=== PATIENT | female | born 1965 | race Caucasian/White ===

== ENCOUNTER 2016-06-04 10:09 | Emergency (ER) | payer BC, OTHER ==
[2016-06-04] MEDS ORDERED: Bacitracin Oint 1 GM U/D Packet TOP ONE (10:18)
--- NOTE | 2016-06-04 10:28 | EDM.PDOC ---
ED HPI Skin/Rash - General Chief Complaint: Laceration Stated Complaint: CUT THE TIP OF FINGER ON LT HAND Time Seen by Provider: 06/04/16 10:15 Source: Reports: Patient History Limitations: Reports: No limitations - History of Present Illness INITIAL COMMENTS - FREE TEXT/NARRATIVE: HISTORY AND PHYSICAL: History of present illness: [Patient comes to the emergency room for evaluation of a laceration to her right middle finger. 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 Had a lot of bleeding at the time and proceeded to the emergency room for evaluation. Her last tetanus was in 2013. Denies numbness and tingling. Has full range of motion to the affected extremity. While in the ER she reports that she's had some nonspecific left upper back pain on and off for the past several months. On 2 occasions this pain has radiated into her left shoulder. Does not have any radiation of discomfort into her jaw, neck or chest. She is not currently having the sensation in her upper back. Last episode was earlier this morning. She identifies an area of discomfort to her left mid back. On the same 2 occasions she's noticed that the pain has taken her breath away. Back pain does not typically cause shortness of breath or difficulty breathing. She is concerned that this may be related to her heart. She has not seen a primary care provider in several years. Parents are alive and well. No history of coronary artery or cerebrovascular disease in parents or siblings. She does not smoke, drinks alcohol twice per year. History of elevated cholesterol. No personal history of hypertension.] Review of systems: As per history of present illness and below otherwise all systems reviewed and negative. Past medical history: As per history of present illness and as reviewed below otherwise noncontributory. Surgical history: As per history of present illness and as reviewed below otherwise noncontributory. Social history: No reported history of drug or alcohol abuse. Family history: As per history of present illness and as reviewed below otherwise noncontributory. Physical exam: HEENT: Atraumatic, normocephalic. Chest: Clear to auscultation bilaterally no wheezing crackles or rales. Cardiac: regular rate rhythm. no murmur gallop click or rubs. Abdomen: Soft nontender no masses guarding or rebound. Extremities: Small superficial laceration extending from medial right fingernail extending across to her mid fingernail. Scant amount of bleeding on exam. Hand rouge sifter strength is strong and equal bilaterally. Neurovascular unremarkable. Musculoskeletal: TTP over L mid back, just below L ribs. Nontender over left scapula and surrounding musculature. No spinal tenderness with palpation. Neuro: Awake, alert, oriented. Cranial nerves II through XII unremarkable. Diagnostics: EKG, CBC, CMP, troponin, chest x-ray Impression: [Superficial laceration, less than 1 cm, right medial middle finger Left shoulder blade pain] Plan: [Bacitracin applied to laceration with sterile dressing by RN. return to ER as needed and as discussed. EKG shows a normal sinus rhythm with a rate of 72. no prior EKGs for comparison. Lab work today is within normal limits. Chest x-ray is unremarkable. Advised patient to establish care with a local primary care provider. Patient verbalized understanding of today's instructions. ] Definitive disposition and diagnosis as appropriate pending reevaluation and review of above. - Related Data Allergies Allergy/AdvReac Type Severity Reaction Status Date / Time No Known Allergies Allergy Verified 06/04/16 10:18 Home Meds: Ambulatory Orders Medication Instructions Recorded Confirmed Escitalopram [Lexapro] 20 mg PO DAILY 01/10/14 06/04/16 buPROPion [Wellbutrin XL] 300 mg PO DAILY 01/10/14 06/04/16 Ferrous Sulfate [Iron] 1 tab PO DAILY 02/28/14 06/04/16 Multivitamin [Multivitamins] 1 tab PO DAILY 02/28/14 06/04/16 Social & Family History - Tobacco Use Smoking Status *Q: Never Smoker Second Hand Smoke Exposure: No - Alcohol Use Days Per Week of Alcohol Use: 0 - Recreational Drug Use Recreational Drug Use: No ED ROS GENERAL - Review of Systems Review Of Systems: ROS reveals no pertinent complaints other than HPI. ED EXAM, SKIN/RASH Exam: See Below Course - Vital Signs Last Recorded V/S: Last Vital Signs Temp 98.0 F 06/04/16 10:15 Pulse 79 06/04/16 10:29 Resp 16 06/04/16 10:15 BP 158/101 H 06/04/16 10:29 Pulse Ox 98 06/04/16 10:15 - Orders/Labs/Meds Orders: Active Orders 24 hr Category Date Time Status EKG Documentation Completion [RC] STAT Care 06/04/16 10:36 Active Labs: Laboratory Tests 06/04/16 06/04/16 06/04/16 Range/Units 10:48 10:48 10:48 WBC 6.22 (4.0-11.0) K/uL RBC 4.42 (4.30-5.90) M/uL Hgb 13.6 (12.0-16.0) g/dL Hct 39.3 (36.0-46.0) % MCV 88.9 (80.0-98.0) fL MCH 30.8 (27.0-32.0) pg MCHC 34.6 (31.0-37.0) g/dL RDW Std Deviation 40.3 (28.0-62.0) fl RDW Coeff of Fransisca 13 (11.0-15.0) % Plt Count 262 (150-400) K/uL MPV 9.80 (7.40-12.00) fL Neut % (Auto) 59.9 (48.0-80.0) % Lymph % (Auto) 26.8 (16.0-40.0) % [place] % (Auto) 10.6 (0.0-15.0) % Eos % (Auto) 2.1 (0.0-7.0) % Baso % (Auto) 0.6 (0.0-1.5) % Neut # (Auto) 3.7 (1.4-5.7) K/uL Lymph # (Auto) 1.7 (0.6-2.4) K/uL [place] # (Auto) 0.7 (0.0-0.8) K/uL Eos # (Auto) 0.1 (0.0-0.7) K/uL Baso # (Auto) 0.0 (0.0-0.1) K/uL Sodium 140 (136-146) mmol/L Potassium 4.4 (3.5-5.1) mmol/L Chloride 106 (98-110) mmol/L Carbon Dioxide 24 (21-31) mmol/L BUN 16 (6.0-23.0) mg/dL Creatinine 0.9 (0.6-1.5) mg/dL Est Cr Clr Drug Dosing TNP Estimated GFR (MDRD) > 60.0 ml/min Glucose 107 (60-110) mg/dL Calcium 9.6 (8.8-10.8) mg/dL Total Bilirubin 0.4 (0.1-1.5) mg/dL AST 23 (5-40) IU/L ALT 28 (8-54) IU/L Alkaline Phosphatase 52 (40-150) Troponin I < 0.10 (0.0-0.29) NG/ML Total Protein 7.7 (6.0-8.0) g/dL Albumin 4.2 (3.5-5.0) g/dL Globulin 3.5 (2.0-3.5) g/dL Albumin/Globulin Ratio 1.2 L (1.3-2.8) Meds: Medications Discontinued Medications Generic Name Dose Route Start Last Admin Trade Name Freq PRN Reason Stop Dose Admin Bacitracin 1 dose 06/04/16 10:18 06/04/16 10:50 Bacitracin Oint 1 Gm TOP 06/04/16 10:19 1 dose ONETIME ONE Administration Departure - Departure Time of Disposition: 11:35 Disposition: Home, Self-Care 01 Condition: good Clinical Impression: Upper back pain on left side Laceration of middle finger Qualifiers: Encounter type: initial encounter Qualified Code(s): S61.218A - Laceration without foreign body of other finger without damage to nail, initial encounter Referrals: PCP,None [Primary Care Provider] - Forms: ED Department Discharge Additional Instructions: The following information is given to patients seen in the emergency department who are being discharged to home. This information is to outline your options for follow-up care. We provide all patients seen in our emergency department with a follow-up referral. The need for follow-up, as well as the timing and circumstances, are variable depending upon the specifics of your emergency department visit. If you don't have a primary care physician on staff, we will provide you with a referral. We always advise you to contact your personal physician following an emergency department visit to inform them of the circumstance of the visit and for follow-up with them and/or the need for any referrals to a consulting specialist. The emergency department will also refer you to a specialist when appropriate. This referral assures that you have the opportunity for follow-up care with a specialist. All of these measure are taken in an effort to provide you with optimal care, which includes your follow-up. Under all circumstances we always encourage you to contact your private physician who remains a resource for coordinating your care. When calling for follow-up care, please make the office aware that this follow-up is from your recent emergency room visit. If for any reason you are refused follow-up, please contact the [facility] emergency department at and asked to speak to the emergency department charge nurse. [address] [address] Apply Triple Antibiotic ointment and a Band-Aid twice daily. Keep clean and dry for the next 24 hours. Followup with a provider at the clinic listed above in 48-72 hours. Followup in ER as needed and as discussed. - My Orders Last 24 Hours: My Active Orders 06/04/16 10:36 EKG Documentation Completion [RC] STAT - Assessment/Plan Last 24 Hours: My Active Orders 06/04/16 10:36 EKG Documentation Completion [RC] STAT
[2016-06-04 11:21] LABS: CHLORIDE,CL 106 mmol/L (98-110); SODIUM,NA 140 mmol/L (136-146)
--- NOTE | 2016-06-04 11:25 | CR ---
EXAMINATION: Two-view chest (PA and Lateral views). HISTORY: Shortness breath. FINDINGS: The trachea is midline. The cardiomediastinal silhouette is within normal limits. No pulmonary infil trates, effusions or pneumothorax. Osseous structures appear unremarkable. IMPRESSION: No acute cardiopulmonary process.
[2016-06-04 11:50] VITALS: BP 164/99
== END 2016-06-04 11:49 | disposition home or self-care (01) ==
LOC: MW.ED 10:09
DX: S61.212A Laceration without foreign body of right middle finger without damage to nail, initial encounter (principal); M54.9 Dorsalgia, unspecified; Z79.899 Other long term (current) drug therapy; W26.0XXA Contact with knife, initial encounter; Y92.511 Restaurant or cafe as the place of occurrence of the external cause
CPT/HCPCS: 36415; 71020; 71020-26; 80053; 84484; 85025; 93005; 99283; 99284-25

== ENCOUNTER 2021-01-25 17:01 | Inpatient (IN) | payer BC, OTHER ==
[2021-01-25] MEDS ORDERED: Sodium Chloride 0.9% 2.5 ML Syringe FLUSH PRN (17:33)
[2021-01-25] MEDS ORDERED: Sodium Chloride 0.9% 1,000 ML IV ONE (17:33)
[2021-01-25] MEDS ORDERED: Sodium Chloride 0.9% 10 ML Syringe FLUSH PRN (17:33)
[2021-01-25] MEDS ORDERED: Ketorolac 30 MG/ML SDV IVPUSH ONE (17:34)
[2021-01-25] MEDS ORDERED: Acetaminophen 500 MG Tab PO ONE (17:34)
--- NOTE | 2021-01-25 17:40 | PCM.EKG ---
#1 Interpretation EKG Date: 01/25/21 Time: 17:31 Rhythm: NSR Rate (Beats/Min): 79 [place]: Normal P-Wave: Present QRS: Normal ST-T: Normal QT: Normal [place]/PQ Interval: 114 EKG Interpretation Comments: EKG is very poor baseline with wander in almost all leads; 2x PVC. No acute ischemic changes
--- NOTE | 2021-01-25 18:04 | EDM.PDOC ---
ED HPI GENERAL MEDICAL PROBLEM - General Chief Complaint: Respiratory Problem Stated Complaint: FEVER Time Seen by Provider: 01/25/21 17:19 Source of Information: Reports: Patient History Limitations: Reports: No Limitations - History of Present Illness INITIAL COMMENTS - FREE TEXT/NARRATIVE: HISTORY AND PHYSICAL: History of present illness: Patient is an otherwise healthy 55-year-old female who presents emergency room today with concern of shortness of breath, fever, nausea, generalized weakness x8 days. Patient states that she is also had a cough and generalized body aches and states that she is not vaccinated for Covid. Patient states that she was more short of breath over the past several days so came here to the emergency room for further evaluation. Patient denies chest pain. Denies headache, neck stiff ness, change in vision, syncope, or near syncope. Denies vomiting, abdominal pain, diarrhea, constipation, or dysuria. Has not noted any blood in urine or stool. Review of systems: As per history of present illness and below otherwise all systems reviewed and negative. Past medical history: As per history of present illness and as reviewed below otherwise noncontributory. Surgical history: As per history of present illness and as reviewed below otherwise noncontributory. Social history: See social history for further information Family history: As per history of present illness and as reviewed below otherwise noncontributory. Physical exam: General: Patient is alert, oriented, and in no acute distress. Patient laying comfortably on exam table. Patient is hypoxic 82% on room air, febrile, otherwise vitally stable and reviewed by me. Patient was placed on 3 L nasal cannula and satting 92%. HEENT: Atraumatic, normocephalic, pupils equal and reactive bilaterally, negative for conjunctival pallor or scleral icterus, mucous membranes moist, throat clear, neck supple, nontender, trachea midline. No drooling or trismus noted. No meningeal signs. No hot potato voice noted. Lungs: Clear to auscultation, breath sounds equal bilaterally, chest nontender. Heart: S1S2, regular rate and rhythm without overt murmur Abdomen: Soft, nondistended, nontender. Negative for masses or hepatosplenomegaly. Negative for costovertebral tenderness. Pelvis: Stable nontender. Genitourinary: Deferred. Rectal: Deferred. Skin: Intact, warm, dry. No lesions or rashes noted. Extremities: Atraumatic, negative for cords or calf pain. Neurovascular unremarkable. Neuro: Awake, alert, oriented. Cranial nerves II through XII unremarkable. Cerebellum unremarkable. Motor and sensory unremarkable throughout. Exam nonfocal. Medical Decision Making: Is an otherwise healthy 55-year-old female who presents emergency room today with concern of generalized body aches, fever, shortness of breath, nausea x8 days. Upon arrival to the ED, patient is hypoxic 82% on room air, febrile, is otherwise vitally stable and well-appearing on exam. Patient was placed on 3 L nasal cannula and satting about 92%. Will obtain cardiac evaluation, COVID- 19/influenza, provide therapeutics and reassess patient. See Dr. Veronica's dictation for specific EKG interpretation. Otherwise, poor baseline wander without STEMI. Normal sinus rhythm. CBC unremarkable. Patient does have mild elevation of AST at 51, otherwise mild derangements of CMP unremarkable. Troponin negative. COVID-19 positive. Angiography of the chest shows no pulmonary embolism. Patchy groundglass opacities throughout the lungs, typical of COVID-19 infection. Hepatic steatosis. On reevaluation of patient, she remains vitally stable on 3 L nasal cannula at about 93 to 94% and otherwise vitally stable and well-appearing on exam. She does have improvement of her symptoms with therapeutics given today in the emergency room and no longer febrile. I did offer patient remdesivir infusion, however, she declines at this time. All risks versus benefits discussed with patient and expresses understanding. I did call and speak to the hospitalist on-call, Dr. Oliva, and thoroughly discussed patient's case. Will admit to inpatient on telemetry to Dr. Oliva. Voices understanding and is agreeable to plan of care. Denies any further questions or concerns at this time. Patient was transferred over to the hospital floor under the care of Dr. Oliva in stable condition Diagnostics: EKG, CBC, CMP, Trop, COVID/Flu, Ang CT chest Therapeutics: NS, Toradol, Tylenol, Decadron (patient declines remdesivir. All risks versus benefits discussed with patient and expresses understanding) Impression: COVID19 viral pneumonia with hypoxia Plan: Admit to inpatient to the hospitalist, Dr. Oliva Definitive disposition and diagnosis as appropriate pending reevaluation and review of above. - Related Data Allergies Allergy/AdvReac Type Severity Reaction Status Date / Time No Known Allergies Allergy Verified 01/25/21 17:20 Home Meds: Home Meds Escitalopram [Lexapro] 20 mg PO DAILY 01/10/14 [History] buPROPion [Wellbutrin XL] 300 mg PO DAILY 01/10/14 [History] Past Medical History - Past Health History Medical/Surgical History: Denies Medical/Surgical History HEENT History: Reports: None Cardiovascular History: Reports: None Respiratory History: Reports: None Gastrointestinal History: Reports: None Genitourinary History: Reports: None COMMUNITY HEALTH EDUCATION COORDINATOR History: Reports: None Musculoskeletal History: Reports: None Neurological History: Reports: Migraines Psychiatric History: Reports: Depression Endocrine/Metabolic History: Reports: Obesity/BMI 30+ Hematologic History: Reports: None Immunologic History: Reports: None Oncologic (Cancer) History: Reports: None Dermatologic History: Reports: None - Infectious Disease History Infectious Disease History: Reports: Chicken Pox - Past Surgical History Head Surgeries/Procedures: Reports: None Neurological Surgical History: Reports: None Social & Family History - Family History Family Medical History: No Pertinent Family History - Tobacco Use Tobacco Use Status *Q: Never Tobacco User Second Hand Smoke Exposure: No - Caffeine Use Caffeine Use: Reports: Tea - Recreational Drug Use Recreational Drug Use: No ED ROS GENERAL - Review of Systems Review Of Systems: Comprehensive ROS is negative, except as noted in HPI. ED EXAM, GENERAL - Physical Exam Exam: See Below (see dictation) Course - Vital Signs Last Recorded V/S: Last Vital Signs Temp 98.8 F 01/25/21 19:12 Pulse 73 01/25/21 20:14 Resp 18 01/25/21 19:12 BP 104/64 01/25/21 20:14 Pulse Ox 93 L 01/25/21 20:14 - Orders/Labs/Meds Orders: Active Orders 24 hr Category Date Time Status Cardiac Monitoring [RC] . DIRECTED Care 01/25/21 17:33 Active Sodium Chloride 0.9% [Saline Flush] Med 01/25/21 17:33 Active 10 ml FLUSH ASDIRECTED PRN Sodium Chloride 0.9% [Saline Flush] Med 01/25/21 17:33 Active 2.5 ml FLUSH ASDIRECTED PRN Saline Lock Insert [OM.PC] Stat Oth 01/25/21 17:33 Ordered Medication Orders Sodium Chloride (Sodium Chloride 0.9% 10 Ml Syringe) 10 ml FLUSH ASDIRECTED PRN PRN Reason: Keep Vein Open Last Admin: 01/25/21 19:13 Dose: 10 ml Documented by: SWATI Sodium Chloride (Sodium Chloride 0.9% 2.5 Ml Syringe) 2.5 ml FLUSH ASDIRECTED PRN PRN Reason: Keep Vein Open Last Admin: 01/25/21 19:13 Dose: 2.5 ml Documented by: SWATI Labs: Laboratory Tests 01/25/21 01/25/21 01/25/21 Range/Units 17:35 17:35 17:35 WBC 4.25 (4.0-11.0) K/uL RBC 4.63 (4.30-5.90) M/uL Hgb 13.7 (12.0-16.0) g/dL Hct 40.5 (36.0-46.0) % MCV 87.5 (80.0-98.0) fL MCH 29.6 (27.0-32.0) pg MCHC 33.8 (31.0-37.0) g/dL RDW Std Deviation 43.3 (28.0-62.0) fl RDW Coeff of Fransisca 14 (11.0-15.0) % Plt Count 173 (150-400) K/uL MPV 10.80 (7.40-12.00) fL Neut % (Auto) 63.8 (48.0-80.0) % Lymph % (Auto) 25.9 (16.0-40.0) % [place] % (Auto) 10.1 (0.0-15.0) % Eos % (Auto) 0.0 (0.0-7.0) % Baso % (Auto) 0.2 (0.0-1.5) % Neut # (Auto) 2.7 (1.4-5.7) K/uL Lymph # (Auto) 1.1 (0.6-2.4) K/uL [place] # (Auto) 0.4 (0.0-0.8) K/uL Eos # (Auto) 0.0 (0.0-0.7) K/uL Baso # (Auto) 0.0 (0.0-0.1) K/uL Nucleated RBC % 0.0 /100WBC Nucleated RBCs # 0 K/uL Sodium 137 (136-145) mmol/L Potassium 3.8 (3.5-5.1) mmol/L Chloride 100 (98-107) mmol/L Carbon Dioxide 29.0 (21.0-32.0) mmol/L BUN 17 (7.0-18.0) mg/dL Creatinine 1.0 (0.6-1.0) mg/dL Est Cr Clr Drug Dosing TNP Estimated GFR (MDRD) 57.1 ml/min Glucose 119 H (74-106) mg/dL Calcium 8.3 L (8.5-10.1) mg/dL Total Bilirubin 0.4 (0.2-1.0) mg/dL Direct Bilirubin (0.0-0.5) mg/dL AST 51 H (15-37) IU/L ALT 42 (14-63) IU/L Alkaline Phosphatase 51 (46-116) U/L Troponin I < 0.050 (0.000-0.056) ng/mL Total Protein 7.6 (6.4-8.2) g/dL Albumin 3.1 L (3.4-5.0) g/dL Globulin 4.5 H (2.6-4.0) g/dL Albumin/Globulin Ratio 0.7 L (0.9-1.6) Influenza Type A RNA NEGATIVE (NEGATIVE) Influenza Type B RNA NEGATIVE (NEGATIVE) SARS-CoV-2 RNA (ESTELA) POSITIVE H (NEGATIVE) 01/25/21 Range/Units 17:35 WBC (4.0-11.0) K/uL RBC (4.30-5.90) M/uL Hgb (12.0-16.0) g/dL Hct (36.0-46.0) % MCV (80.0-98.0) fL MCH (27.0-32.0) pg MCHC (31.0-37.0) g/dL RDW Std Deviation (28.0-62.0) fl RDW Coeff of Fransisca (11.0-15.0) % Plt Count (150-400) K/uL MPV (7.40-12.00) fL Neut % (Auto) (48.0-80.0) % Lymph % (Auto) (16.0-40.0) % [place] % (Auto) (0.0-15.0) % Eos % (Auto) (0.0-7.0) % Baso % (Auto) (0.0-1.5) % Neut # (Auto) (1.4-5.7) K/uL Lymph # (Auto) (0.6-2.4) K/uL [place] # (Auto) (0.0-0.8) K/uL Eos # (Auto) (0.0-0.7) K/uL Baso # (Auto) (0.0-0.1) K/uL Nucleated RBC % /100WBC Nucleated RBCs # K/uL Sodium (136-145) mmol/L Potassium (3.5-5.1) mmol/L Chloride (98-107) mmol/L Carbon Dioxide (21.0-32.0) mmol/L BUN (7.0-18.0) mg/dL Creatinine (0.6-1.0) mg/dL Est Cr Clr Drug Dosing Estimated GFR (MDRD) ml/min Glucose (74-106) mg/dL Calcium (8.5-10.1) mg/dL Total Bilirubin (0.2-1.0) mg/dL Direct Bilirubin 0.10 (0.0-0.5) mg/dL AST (15-37) IU/L ALT (14-63) IU/L Alkaline Phosphatase (46-116) U/L Troponin I (0.000-0.056) ng/mL Total Protein (6.4-8.2) g/dL Albumin (3.4-5.0) g/dL Globulin (2.6-4.0) g/dL Albumin/Globulin Ratio (0.9-1.6) Influenza Type A RNA (NEGATIVE) Influenza Type B RNA (NEGATIVE) SARS-CoV-2 RNA (ESTELA) (NEGATIVE) Meds: Medications Generic Name Dose Route Start Last Admin Trade Name Freq PRN Reason Stop Dose Admin Sodium Chloride 10 ml 01/25/21 17:33 01/25/21 19:13 Sodium Chloride 0.9% 10 Ml Syringe FLUSH 10 ml ASDIRECTED PRN Administration Keep Vein Open Sodium Chloride 2.5 ml 01/25/21 17:33 01/25/21 19:13 Sodium Chloride 0.9% 2.5 Ml Syringe FLUSH 2.5 ml ASDIRECTED PRN Administration Keep Vein Open Discontinued Medications Generic Name Dose Route Start Last Admin Trade Name Freq PRN Reason Stop Dose Admin Acetaminophen 1,000 mg 01/25/21 17:34 01/25/21 17:48 Acetaminophen 500 Mg Tab PO 01/25/21 17:35 1,000 mg ONETIME ONE Administration Dexamethasone 10 mg 01/25/21 19:15 01/25/21 19:53 Dexamethasone 10 Mg/Ml Sdv IVPUSH 01/25/21 19:16 10 mg ONETIME ONE Administration Sodium Chloride 1,000 mls @ 999 mls/hr 01/25/21 17:33 01/25/21 17:48 Normal Saline IV 01/25/21 18:33 999 mls/hr BOLUS ONE Administration Remdesivir 200 mg/ Sodium 250 mls @ 250 mls/hr 01/25/21 19:15 01/25/21 19:58 Chloride IV 01/25/21 19:16 Not Given ONETIME ONE Iopamidol 100 ml 01/25/21 19:04 01/25/21 19:05 Iopamidol 755 Mg/Ml 500 Ml Multipack Bottle IVPUSH 01/25/21 19:05 100 ml ONETIME ONE Administration Ketorolac Tromethamine 30 mg 01/25/21 17:34 01/25/21 17:49 Ketorolac 30 Mg/Ml Sdv IVPUSH 01/25/21 17:35 30 mg ONETIME ONE Administration Departure - Departure Time of Disposition: 20:58 Disposition: Admitted As Inpatient 64 Clinical Impression: Pneumonia due to COVID-19 virus, Hypoxia - Discharge Information Sepsis Event Note (ED) - Evaluation Sepsis Screening Result: No Definite Risk - Focused Exam Vital Signs: Vital Signs Temp Pulse Resp BP Pulse Ox 01/25/21 20:14 73 104/64 93 L 01/25/21 19:12 98.8 F 73 18 109/72 92 L 01/25/21 17:30 93 L 01/25/21 17:25 102.4 F H 87 20 102/71 82 L - My Orders Last 24 Hours: My Active Orders 01/25/21 17:33 Cardiac Monitoring [RC] . DIRECTED Sodium Chloride 0.9% [Saline Flush] 10 ml FLUSH ASDIRECTED PRN Sodium Chloride 0.9% [Saline Flush] 2.5 ml FLUSH ASDIRECTED PRN Saline Lock Insert [OM.PC] Stat - Assessment/Plan Last 24 Hours: My Active Orders 01/25/21 17:33 Cardiac Monitoring [RC] . DIRECTED Sodium Chloride 0.9% [Saline Flush] 10 ml FLUSH ASDIRECTED PRN Sodium Chloride 0.9% [Saline Flush] 2.5 ml FLUSH ASDIRECTED PRN Saline Lock Insert [OM.PC] Stat
[2021-01-25 18:09] LABS: BLOOD UREA NITROGEN,BUN 17 mg/dL (7.0-18.0); CHLORIDE,CL 100 mmol/L (98-107); GLUCOSE RANDOM 119 mg/dL (74-106); POTASSIUM,K 3.8 mmol/L (3.5-5.1); SODIUM,NA 137 mmol/L (136-145)
[2021-01-25 18:26] LABS: CORONAVIRUS COVID-19 NAA POSITIVE (NEGATIVE)
[2021-01-25] MEDS ORDERED: Iopamidol 755 MG/ML 500 ML Multipack Bottle IVPUSH ONE (19:04)
[2021-01-25 19:08] LABS: INFLUENZA A NAA NEGATIVE (NEGATIVE); INFLUENZA B NAA NEGATIVE (NEGATIVE)
[2021-01-25] MEDS ORDERED: REMDESIVIR 200 MG in Sodium Chloride 0.9% 250 ML IV ONE (19:15)
[2021-01-25] MEDS ORDERED: Dexamethasone 10 MG/ML SDV IVPUSH ONE (19:15)
--- NOTE | 2021-01-25 19:42 | CT ---
INDICATION: Chest pain and shortness of breath TECHNIQUE: CT chest pulmonary PE protocol acquired with IV contrast. COMPARISON: None FINDINGS: Cardiovascular structures: Normal vascular enhancement of the pulmonary arteries, no sign of pulmonary embolism. Heart size is normal. No sign of aneurysm in the thoracic aorta. Mediastinum and jennifer: No mass or adenopathy. Lungs: Patchy ground-glass opacities in the lungs. Pleura and pericardium: No effusions. Chest wall and axilla: No mass or adenopathy. Upper abdomen: Hepatic steatosis. Simple cyst on the right kidney. Elevated right hemidiaphragm. Bones: No significant findings. IMPRESSION: No pulmonary embolism. Patchy ground-glass opacities throughout the lungs, typical of COVID-19 infection. Hepatic steatosis. Please note that all CT scans at this facility use dose modulation, iterative reconstruction, and/or weight-based dosing when appropriate to reduce radiation dose to as low as reasonably achievable. Dictated by Lolita Tabares MD @ 01/25/2021 7:40:48 PM (Electronically Signed)
--- NOTE | 2021-01-25 20:59 | PCM.HP.2 ---
H&P History of Present Illness - General Date of Service: 01/25/21 Admit Problem/Dx: Admission Diagnosis/Problem Admission Diagnosis/Problem Hypoxia - History of Present Illness Initial Comments - Free Text/Narative: Mrs. Garcia is a 55 y/o obese female without any other significant PMH who presented to the emergency room today with complaints of shortness of breath, fever, nausea, generalized weakness x at least 8 days. She reports having a dry cough for over a week and progressive generalized weakness and loss of appetite. She tested positive for COVID 19 in the ED today. She is not vaccinated for Covi d 19. She denies having any chills or sweats. She also denies having any nausea, vomiting or diarrhea. CTA chest done in the ED showed kassidy ground opacities typical of covid 19 pneumonia but no evidence of pulmonary embolism. In the ED her room air sats were < 88% on room air. Since then she has been able to maintain her sats> 90% on 3 L NC - Related Data Allergies/Adverse Reactions: Allergies Allergy/AdvReac Type Severity Reaction Status Date / Time No Known Allergies Allergy Verified 01/25/21 22:18 Home Medications: Home Meds Escitalopram [Lexapro] 20 mg PO DAILY 01/10/14 [History] buPROPion [Wellbutrin XL] 300 mg PO DAILY 01/10/14 [History] Butalb/Acetaminophen/Caffeine [Hjkodj-Batgylsw-Ufon 50-300-40] 1 each PO 01/25/21 [History] Past Medical History - Past Health History Medical/Surgical History: Denies Medical/Surgical History HEENT History: Reports: None Cardiovascular History: Reports: None Respiratory History: Reports: None Gastrointestinal History: Reports: None Genitourinary History: Reports: None [employer] History: Reports: None Musculoskeletal History: Reports: None Neurological History: Reports: Migraines Psychiatric History: Reports: Depression Endocrine/Metabolic History: Reports: Obesity/BMI 30+ Hematologic History: Reports: None Immunologic History: Reports: None Oncologic (Cancer) History: Reports: None Dermatologic History: Reports: None - Infectious Disease History Infectious Disease History: Reports: Chicken Pox - Past Surgical History Head Surgeries/Procedures: Reports: None Neurological Surgical History: Reports: None Social & Family History - Family History Family Medical History: No Pertinent Family History - Tobacco Use Tobacco Use Status *Q: Never Tobacco User Second Hand Smoke Exposure: No - Caffeine Use Caffeine Use: Reports: Tea - Recreational Drug Use Recreational Drug Use: No H&P Review of Systems - Review of Systems: Review Of Systems: See Below Review of Systems Comment:: General: as per HPI CVS: Denies any chest pain or angina symptoms PA: As per HPI JESSIKA: Denies any dysuria, frequency, urgency or hematuria neuro: c/o generalized weakness and no focal deficits. psych: Denies being confused, depressed or any hallucinations . Exam - Exam Exam: See Below - Vital Signs Vital Signs: Last Vital Signs Temp 98.8 F 01/25/21 19:12 Pulse 73 01/25/21 20:14 Resp 18 01/25/21 19:12 BP 104/64 01/25/21 20:14 Pulse Ox 93 L 01/25/21 20:14 Weight: 220 lb - Exam Physical Exam Comments:: General: middle aged female. In no acute distress. Looks and feels weak. CVS : S1S2 appreciated. regular rate and rhythm. lungs: clear bilaterally, no rales or wheezes. pa: soft, obese, non tender. Bowel sounds are present. ext: no clubbing or cyanosis. Some peripheral edema 1+ neuro: moves all extremities psych: Low mood. - Patient Data Lab Results Last 24 hrs: Laboratory Results - last 24 hr 01/25/21 01/25/21 01/25/21 Range/Units 17:35 17:35 17:35 WBC 4.25 (4.0-11.0) K/uL RBC 4.63 (4.30-5.90) M/uL Hgb 13.7 (12.0-16.0) g/dL Hct 40.5 (36.0-46.0) % MCV 87.5 (80.0-98.0) fL MCH 29.6 (27.0-32.0) pg MCHC 33.8 (31.0-37.0) g/dL RDW Std Deviation 43.3 (28.0-62.0) fl RDW Coeff of Fransisca 14 (11.0-15.0) % Plt Count 173 (150-400) K/uL MPV 10.80 (7.40-12.00) fL Neut % (Auto) 63.8 (48.0-80.0) % Lymph % (Auto) 25.9 (16.0-40.0) % Bonner % (Auto) 10.1 (0.0-15.0) % Eos % (Auto) 0.0 (0.0-7.0) % Baso % (Auto) 0.2 (0.0-1.5) % Neut # (Auto) 2.7 (1.4-5.7) K/uL Lymph # (Auto) 1.1 (0.6-2.4) K/uL Bonner # (Auto) 0.4 (0.0-0.8) K/uL Eos # (Auto) 0.0 (0.0-0.7) K/uL Baso # (Auto) 0.0 (0.0-0.1) K/uL Nucleated RBC % 0.0 /100WBC Nucleated RBCs # 0 K/uL Sodium 137 (136-145) mmol/L Potassium 3.8 (3.5-5.1) mmol/L Chloride 100 (98-107) mmol/L Carbon Dioxide 29.0 (21.0-32.0) mmol/L BUN 17 (7.0-18.0) mg/dL Creatinine 1.0 (0.6-1.0) mg/dL Est Cr Clr Drug Dosing TNP Estimated GFR (MDRD) 57.1 ml/min Glucose 119 H (74-106) mg/dL Calcium 8.3 L (8.5-10.1) mg/dL Total Bilirubin 0.4 (0.2-1.0) mg/dL Direct Bilirubin (0.0-0.5) mg/dL AST 51 H (15-37) IU/L ALT 42 (14-63) IU/L Alkaline Phosphatase 51 (46-116) U/L Troponin I < 0.050 (0.000-0.056) ng/mL Total Protein 7.6 (6.4-8.2) g/dL Albumin 3.1 L (3.4-5.0) g/dL Globulin 4.5 H (2.6-4.0) g/dL Albumin/Globulin Ratio 0.7 L (0.9-1.6) Influenza Type A RNA NEGATIVE (NEGATIVE) Influenza Type B RNA NEGATIVE (NEGATIVE) SARS-CoV-2 RNA (ESTELA) POSITIVE H (NEGATIVE) 01/25/21 Range/Units 17:35 WBC (4.0-11.0) K/uL RBC (4.30-5.90) M/uL Hgb (12.0-16.0) g/dL Hct (36.0-46.0) % MCV (80.0-98.0) fL MCH (27.0-32.0) pg MCHC (31.0-37.0) g/dL RDW Std Deviation (28.0-62.0) fl RDW Coeff of Fransisca (11.0-15.0) % Plt Count (150-400) K/uL MPV (7.40-12.00) fL Neut % (Auto) (48.0-80.0) % Lymph % (Auto) (16.0-40.0) % Bonner % (Auto) (0.0-15.0) % Eos % (Auto) (0.0-7.0) % Baso % (Auto) (0.0-1.5) % Neut # (Auto) (1.4-5.7) K/uL Lymph # (Auto) (0.6-2.4) K/uL Bonner # (Auto) (0.0-0.8) K/uL Eos # (Auto) (0.0-0.7) K/uL Baso # (Auto) (0.0-0.1) K/uL Nucleated RBC % /100WBC Nucleated RBCs # K/uL Sodium (136-145) mmol/L Potassium (3.5-5.1) mmol/L Chloride (98-107) mmol/L Carbon Dioxide (21.0-32.0) mmol/L BUN (7.0-18.0) mg/dL Creatinine (0.6-1.0) mg/dL Est Cr Clr Drug Dosing Estimated GFR (MDRD) ml/min Glucose (74-106) mg/dL Calcium (8.5-10.1) mg/dL Total Bilirubin (0.2-1.0) mg/dL Direct Bilirubin 0.10 (0.0-0.5) mg/dL AST (15-37) IU/L ALT (14-63) IU/L Alkaline Phosphatase (46-116) U/L Troponin I (0.000-0.056) ng/mL Total Protein (6.4-8.2) g/dL Albumin (3.4-5.0) g/dL Globulin (2.6-4.0) g/dL Albumin/Globulin Ratio (0.9-1.6) Influenza Type A RNA (NEGATIVE) Influenza Type B RNA (NEGATIVE) SARS-CoV-2 RNA (ESTELA) (NEGATIVE) Result Diagrams: 01/26/21 07:18 01/26/21 07:18 Sepsis Event Note - Evaluation Sepsis Screening Result: No Definite Risk - Focused Exam Vital Signs: Vital Signs Temp Pulse Resp BP Pulse Ox 01/25/21 20:14 73 104/64 93 L 01/25/21 19:12 98.8 F 73 18 109/72 92 L 01/25/21 17:30 93 L 01/25/21 17:25 102.4 F H 87 20 102/71 82 L - Problem List (1) Acute respiratory disease due to COVID-19 virus SNOMED Code(s): 937867138, 131487020 ICD Code: U07.1 - COVID-19; J06.9 - ACUTE UPPER RESPIRATORY INFECTION, UNSPECIFIED Status: Acute Current Visit: Yes (2) Pneumonia due to COVID-19 virus SNOMED Code(s): 262562668279339386 ICD Code: U07.1 - COVID-19; J12.82 - PNEUMONIA DUE TO CORONAVIRUS DISEASE 2019 Status: Acute Current Visit: Yes (3) Obesity (BMI 30.0-34.9) SNOMED Code(s): 845260475420211 ICD Code: E66.9 - OBESITY, UNSPECIFIED Status: Acute Current Visit: Yes (4) Full code status SNOMED Code(s): 991292420 ICD Code: Z78.9 - OTHER SPECIFIED HEALTH STATUS Status: Acute Current Visit: Yes (5) DVT prophylaxis SNOMED Code(s): 893758971, 262484115 ICD Code: Z29.9 - ENCOUNTER FOR PROPHYLACTIC MEASURES, UNSPECIFIED Status: Acute Current Visit: Yes Problem List Initiated/Reviewed/Updated: Yes Orders Last 24hrs: Active Orders 24 hr Category Date Time Status Admission Status [Patient Status] [ADT] Stat ADT 01/25/21 20:23 Active Cardiac Monitoring [RC] . DIRECTED Care 01/25/21 17:33 Active Sodium Chloride 0.9% [Saline Flush] Med 01/25/21 17:33 Active 10 ml FLUSH ASDIRECTED PRN Sodium Chloride 0.9% [Saline Flush] Med 01/25/21 17:33 Active 2.5 ml FLUSH ASDIRECTED PRN Saline Lock Insert [OM.PC] Stat Oth 01/25/21 17:33 Ordered Medication Orders Sodium Chloride (Sodium Chloride 0.9% 10 Ml Syringe) 10 ml FLUSH ASDIRECTED PRN PRN Reason: Keep Vein Open Last Admin: 01/25/21 19:13 Dose: 10 ml Documented by: SWATI Sodium Chloride (Sodium Chloride 0.9% 2.5 Ml Syringe) 2.5 ml FLUSH ASDIRECTED PRN PRN Reason: Keep Vein Open Last Admin: 01/25/21 19:13 Dose: 2.5 ml Documented by: SWATI Assessment/Plan Comment:: Acute respiratory failure with hypoxemia secondary to COVID 19 pneumonia Admit pt to the medical floor Oxygen supplementation to keep sats > 90% Duonebs Q6 and albuterol Q2 prn Incentive spirometry Q hr while awake and proning as tolerated. Covid 19 pneumonia Dexamethasone, Remdesivir and anticoagulation Obesity Life style modification. Full code status VTE prophylasix On lovenox 40 mg SQ Hypokalemia Replace K. repeat labs as needed. - Mortality Measure Prognosis:: Good
[2021-01-25] MEDS ORDERED: Dextrose 5%-0.45% NaCl 1,000 ML IV SCH (21:00)
[2021-01-25] MEDS ORDERED: Albuterol 8 GM Inhaler INH PRN (21:03)
[2021-01-25] MEDS: Enoxaparin 40 MG/0.4 ML Syringe SUBCUT SCH (22:14)
[2021-01-26] MEDS: Albuterol/Ipratropium 3.0-0.5 MG/3 ML Neb Soln NEB SCH ×6 (00:31→21:57)
[2021-01-26 08:04] LABS: CARBON DIOXIDE,CO2 27.6 mmol/L (21.0-32.0); POTASSIUM,K 3.1 mmol/L (3.5-5.1)
[2021-01-26] MEDS: Dexamethasone 4 MG Tab PO SCH (08:30)
--- NOTE | 2021-01-26 13:43 | PCM.PN ---
- General Info Date of Service: 01/26/21 Admission Dx/Problem (Free Text): Pt is doing fairly OK. She is still able to maintain her oxygen sats > 90% on 3 L NC. She is generally weak and just wants to stay in bed. She was able to do anywhere from 500-700cc on the incentive spirometer. She has been encouraged to get out of bed and continue to do the incentive spirometer till she can get up to > 1500cc. - Patient Data Vitals - Most Recent: Last Vital Signs Temp 97.2 F 01/26/21 09:00 Pulse 69 01/26/21 09:00 Resp 20 01/26/21 09:00 BP 118/67 01/26/21 09:00 Pulse Ox 90 L 01/26/21 09:00 Weight - Most Recent: 210 lb I&O - Last 24 Hours: Intake & Output 01/25/21 01/26/21 01/26/21 22:59 06:59 14:59 Intake Total 0 Balance 0 Lab Results Last 24 Hours: Laboratory Results - last 24 hr 01/25/21 01/25/21 01/25/21 Range/Units 17:35 17:35 17:35 WBC 4.25 (4.0-11.0) K/uL RBC 4.63 (4.30-5.90) M/uL Hgb 13.7 (12.0-16.0) g/dL Hct 40.5 (36.0-46.0) % MCV 87.5 (80.0-98.0) fL MCH 29.6 (27.0-32.0) pg MCHC 33.8 (31.0-37.0) g/dL RDW Std Deviation 43.3 (28.0-62.0) fl RDW Coeff of Fransisca 14 (11.0-15.0) % Plt Count 173 (150-400) K/uL MPV 10.80 (7.40-12.00) fL Neut % (Auto) 63.8 (48.0-80.0) % Lymph % (Auto) 25.9 (16.0-40.0) % Crockett % (Auto) 10.1 (0.0-15.0) % Eos % (Auto) 0.0 (0.0-7.0) % Baso % (Auto) 0.2 (0.0-1.5) % Neut # (Auto) 2.7 (1.4-5.7) K/uL Lymph # (Auto) 1.1 (0.6-2.4) K/uL Crockett # (Auto) 0.4 (0.0-0.8) K/uL Eos # (Auto) 0.0 (0.0-0.7) K/uL Baso # (Auto) 0.0 (0.0-0.1) K/uL Nucleated RBC % 0.0 /100WBC Nucleated RBCs # 0 K/uL Sodium 137 (136-145) mmol/L Potassium 3.8 (3.5-5.1) mmol/L Chloride 100 (98-107) mmol/L Carbon Dioxide 29.0 (21.0-32.0) mmol/L BUN 17 (7.0-18.0) mg/dL Creatinine 1.0 (0.6-1.0) mg/dL Est Cr Clr Drug Dosing TNP Estimated GFR (MDRD) 57.1 ml/min Glucose 119 H (74-106) mg/dL Calcium 8.3 L (8.5-10.1) mg/dL Total Bilirubin 0.4 (0.2-1.0) mg/dL Direct Bilirubin (0.0-0.5) mg/dL AST 51 H (15-37) IU/L ALT 42 (14-63) IU/L Alkaline Phosphatase 51 (46-116) U/L Troponin I < 0.050 (0.000-0.056) ng/mL Total Protein 7.6 (6.4-8.2) g/dL Albumin 3.1 L (3.4-5.0) g/dL Globulin 4.5 H (2.6-4.0) g/dL Albumin/Globulin Ratio 0.7 L (0.9-1.6) Influenza Type A RNA NEGATIVE (NEGATIVE) Influenza Type B RNA NEGATIVE (NEGATIVE) SARS-CoV-2 RNA (ESTELA) POSITIVE H (NEGATIVE) 01/25/21 01/26/21 01/26/21 Range/Units 17:35 07:18 07:18 WBC 2.89 L (4.0-11.0) K/uL RBC 4.55 (4.30-5.90) M/uL Hgb 13.3 (12.0-16.0) g/dL Hct 40.4 (36.0-46.0) % MCV 88.8 (80.0-98.0) fL MCH 29.2 (27.0-32.0) pg MCHC 32.9 (31.0-37.0) g/dL RDW Std Deviation 44.4 (28.0-62.0) fl RDW Coeff of Fransisca 14 (11.0-15.0) % Plt Count 165 (150-400) K/uL MPV 10.60 (7.40-12.00) fL Neut % (Auto) 52.6 (48.0-80.0) % Lymph % (Auto) 43.3 H (16.0-40.0) % Crockett % (Auto) 3.8 (0.0-15.0) % Eos % (Auto) 0.0 (0.0-7.0) % Baso % (Auto) 0.3 (0.0-1.5) % Neut # (Auto) 1.5 (1.4-5.7) K/uL Lymph # (Auto) 1.3 (0.6-2.4) K/uL Crockett # (Auto) 0.1 (0.0-0.8) K/uL Eos # (Auto) 0.0 (0.0-0.7) K/uL Baso # (Auto) 0.0 (0.0-0.1) K/uL Nucleated RBC % 0.0 /100WBC Nucleated RBCs # 0 K/uL Sodium 144 (136-145) mmol/L Potassium 3.1 L (3.5-5.1) mmol/L Chloride 105 (98-107) mmol/L Carbon Dioxide 27.6 (21.0-32.0) mmol/L BUN 20 H (7.0-18.0) mg/dL Creatinine 1.2 H (0.6-1.0) mg/dL Est Cr Clr Drug Dosing 55.93 Estimated GFR (MDRD) 46.3 ml/min Glucose 218 H (74-106) mg/dL Calcium 8.4 L (8.5-10.1) mg/dL Total Bilirubin (0.2-1.0) mg/dL Direct Bilirubin 0.10 (0.0-0.5) mg/dL AST (15-37) IU/L ALT (14-63) IU/L Alkaline Phosphatase (46-116) U/L Troponin I (0.000-0.056) ng/mL Total Protein (6.4-8.2) g/dL Albumin (3.4-5.0) g/dL Globulin (2.6-4.0) g/dL Albumin/Globulin Ratio (0.9-1.6) Influenza Type A RNA (NEGATIVE) Influenza Type B RNA (NEGATIVE) SARS-CoV-2 RNA (ESTELA) (NEGATIVE) Med Orders - Current: Current Medications Albuterol (Albuterol 8 Gm Inhaler) 0 gm INH Q2H PRN PRN Reason: Dyspnea Albuterol/Ipratropium (Albuterol/Ipratropium 3.0-0.5 Mg/3 Ml Neb Soln) 3 ml NEB Q4HRRT [facility] Dexamethasone (Dexamethasone 4 Mg Tab) 4 mg PO DAILY [facility] Stop: 02/04/21 09:01 Last Admin: 01/26/21 08:30 Dose: 4 mg Documented by: Enoxaparin Sodium (Enoxaparin 40 Mg/0.4 Ml Syringe) 40 mg SUBCUT Q24H [facility] Last Admin: 01/25/21 22:14 Dose: 40 mg Documented by: Remdesivir 100 mg/ Sodium (Chloride) 100 mls @ 100 mls/hr IV Q24H [facility] Stop: 01/29/21 18:44 Potassium Chloride (Potassium Chloride 20 Meq Tab.Er) 40 meq PO DAILY [facility] Sodium Chloride (Sodium Chloride 0.9% 10 Ml Syringe) 10 ml FLUSH ASDIRECTED PRN PRN Reason: Keep Vein Open Last Admin: 01/25/21 19:13 Dose: 10 ml Documented by: Sodium Chloride (Sodium Chloride 0.9% 2.5 Ml Syringe) 2.5 ml FLUSH ASDIRECTED PRN PRN Reason: Keep Vein Open Last Admin: 01/25/21 19:13 Dose: 2.5 ml Documented by: Discontinued Medications Acetaminophen (Acetaminophen 500 Mg Tab) 1,000 mg PO ONETIME ONE Stop: 01/25/21 17:35 Last Admin: 01/25/21 17:48 Dose: 1,000 mg Documented by: Albuterol/Ipratropium (Albuterol/Ipratropium 3.0-0.5 Mg/3 Ml Neb Soln) 3 ml NEB Q6HRRT [facility] Last Admin: 01/26/21 12:19 Dose: 3 ml Documented by: Dexamethasone (Dexamethasone 10 Mg/Ml Sdv) 10 mg IVPUSH ONETIME ONE Stop: 01/25/21 19:16 Last Admin: 01/25/21 19:53 Dose: 10 mg Documented by: Sodium Chloride (Normal Saline) 1,000 mls @ 999 mls/hr IV BOLUS ONE Stop: 01/25/21 18:33 Last Admin: 01/25/21 17:48 Dose: 999 mls/hr Documented by: Remdesivir 200 mg/ Sodium (Chloride) 250 mls @ 250 mls/hr IV ONETIME ONE Stop: 01/25/21 19:16 Last Admin: 01/25/21 19:58 Dose: Not Given Documented by: Dextrose/Sodium Chloride (Dextrose 5%-1/2 Ns) 1,000 mls @ 75 mls/hr IV ASDIRECTED [facility] Stop: 01/26/21 10:19 Last Admin: 01/26/21 04:34 Dose: 75 mls/hr Documented by: Iopamidol (Iopamidol 755 Mg/Ml 500 Ml Multipack Bottle) 100 ml IVPUSH ONETIME ONE Stop: 01/25/21 19:05 Last Admin: 01/25/21 19:05 Dose: 100 ml Documented by: Ketorolac Tromethamine (Ketorolac 30 Mg/Ml Sdv) 30 mg IVPUSH ONETIME ONE Stop: 01/25/21 17:35 Last Admin: 01/25/21 17:49 Dose: 30 mg Documented by: - Exam Physical Findings Comments:: General: middle aged female. In no acute distress. Looks and feels weak. CVS : S1S2 appreciated. regular rate and rhythm. lungs: clear bilaterally, no rales or wheezes. pa: soft, obese, non tender. Bowel sounds are present. ext: no clubbing or cyanosis. Some peripheral edema 1+ neuro: moves all extremities psych: Stable mood and affect. - Patient Data Lab Results Last 24 hrs: Laboratory Results - last 24 hr 01/25/21 01/25/21 01/25/21 Range/Units 17:35 17:35 17:35 WBC 4.25 (4.0-11.0) K/uL RBC 4.63 (4.30-5.90) M/uL Hgb 13.7 (12.0-16.0) g/dL Hct 40.5 (36.0-46.0) % MCV 87.5 (80.0-98.0) fL MCH 29.6 (27.0-32.0) pg MCHC 33.8 (31.0-37.0) g/dL RDW Std Deviation 43.3 (28.0-62.0) fl RDW Coeff of Fransisca 14 (11.0-15.0) % Plt Count 173 (150-400) K/uL MPV 10.80 (7.40-12.00) fL Neut % (Auto) 63.8 (48.0-80.0) % Lymph % (Auto) 25.9 (16.0-40.0) % Crockett % (Auto) 10.1 (0.0-15.0) % Eos % (Auto) 0.0 (0.0-7.0) % Baso % (Auto) 0.2 (0.0-1.5) % Neut # (Auto) 2.7 (1.4-5.7) K/uL Lymph # (Auto) 1.1 (0.6-2.4) K/uL Crockett # (Auto) 0.4 (0.0-0.8) K/uL Eos # (Auto) 0.0 (0.0-0.7) K/uL Baso # (Auto) 0.0 (0.0-0.1) K/uL Nucleated RBC % 0.0 /100WBC Nucleated RBCs # 0 K/uL Sodium 137 (136-145) mmol/L Potassium 3.8 (3.5-5.1) mmol/L Chloride 100 (98-107) mmol/L Carbon Dioxide 29.0 (21.0-32.0) mmol/L BUN 17 (7.0-18.0) mg/dL Creatinine 1.0 (0.6-1.0) mg/dL Est Cr Clr Drug Dosing TNP Estimated GFR (MDRD) 57.1 ml/min Glucose 119 H (74-106) mg/dL Calcium 8.3 L (8.5-10.1) mg/dL Total Bilirubin 0.4 (0.2-1.0) mg/dL Direct Bilirubin (0.0-0.5) mg/dL AST 51 H (15-37) IU/L ALT 42 (14-63) IU/L Alkaline Phosphatase 51 (46-116) U/L Troponin I < 0.050 (0.000-0.056) ng/mL Total Protein 7.6 (6.4-8.2) g/dL Albumin 3.1 L (3.4-5.0) g/dL Globulin 4.5 H (2.6-4.0) g/dL Albumin/Globulin Ratio 0.7 L (0.9-1.6) Influenza Type A RNA NEGATIVE (NEGATIVE) Influenza Type B RNA NEGATIVE (NEGATIVE) SARS-CoV-2 RNA (ESTELA) POSITIVE H (NEGATIVE) 01/25/21 01/26/21 01/26/21 Range/Units 17:35 07:18 07:18 WBC 2.89 L (4.0-11.0) K/uL RBC 4.55 (4.30-5.90) M/uL Hgb 13.3 (12.0-16.0) g/dL Hct 40.4 (36.0-46.0) % MCV 88.8 (80.0-98.0) fL MCH 29.2 (27.0-32.0) pg MCHC 32.9 (31.0-37.0) g/dL RDW Std Deviation 44.4 (28.0-62.0) fl RDW Coeff of Fransisca 14 (11.0-15.0) % Plt Count 165 (150-400) K/uL MPV 10.60 (7.40-12.00) fL Neut % (Auto) 52.6 (48.0-80.0) % Lymph % (Auto) 43.3 H (16.0-40.0) % Crockett % (Auto) 3.8 (0.0-15.0) % Eos % (Auto) 0.0 (0.0-7.0) % Baso % (Auto) 0.3 (0.0-1.5) % Neut # (Auto) 1.5 (1.4-5.7) K/uL Lymph # (Auto) 1.3 (0.6-2.4) K/uL Crockett # (Auto) 0.1 (0.0-0.8) K/uL Eos # (Auto) 0.0 (0.0-0.7) K/uL Baso # (Auto) 0.0 (0.0-0.1) K/uL Nucleated RBC % 0.0 /100WBC Nucleated RBCs # 0 K/uL Sodium 144 (136-145) mmol/L Potassium 3.1 L (3.5-5.1) mmol/L Chloride 105 (98-107) mmol/L Carbon Dioxide 27.6 (21.0-32.0) mmol/L BUN 20 H (7.0-18.0) mg/dL Creatinine 1.2 H (0.6-1.0) mg/dL Est Cr Clr Drug Dosing 55.93 Estimated GFR (MDRD) 46.3 ml/min Glucose 218 H (74-106) mg/dL Calcium 8.4 L (8.5-10.1) mg/dL Total Bilirubin (0.2-1.0) mg/dL Direct Bilirubin 0.10 (0.0-0.5) mg/dL AST (15-37) IU/L ALT (14-63) IU/L Alkaline Phosphatase (46-116) U/L Troponin I (0.000-0.056) ng/mL Total Protein (6.4-8.2) g/dL Albumin (3.4-5.0) g/dL Globulin (2.6-4.0) g/dL Albumin/Globulin Ratio (0.9-1.6) Influenza Type A RNA (NEGATIVE) Influenza Type B RNA (NEGATIVE) SARS-CoV-2 RNA (ESTELA) (NEGATIVE) Result Diagrams: 01/26/21 07:18 01/26/21 07:18 Sepsis Event Note - Evaluation Sepsis Screening Result: No Definite Risk - Focused Exam Vital Signs: Vital Signs Temp Pulse Resp BP Pulse Ox 01/26/21 09:00 97.2 F 69 20 118/67 90 L 01/26/21 04:53 54 L 16 113/67 100 - Problem List & Annotations (1) Acute respiratory disease due to COVID-19 virus SNOMED Code(s): 900745293, 540831659 Code(s): U07.1 - COVID-19; J06.9 - ACUTE UPPER RESPIRATORY INFECTION, UNSPECIFIED Status: Acute Current Visit: Yes (2) Pneumonia due to COVID-19 virus SNOMED Code(s): 724343333405317197 Code(s): U07.1 - COVID-19; J12.82 - PNEUMONIA DUE TO CORONAVIRUS DISEASE 2019 Status: Acute Current Visit: Yes (3) Obesity (BMI 30.0-34.9) SNOMED Code(s): 505345268856343 Code(s): E66.9 - OBESITY, UNSPECIFIED Status: Acute Current Visit: Yes (4) Full code status SNOMED Code(s): 835278600 Code(s): Z78.9 - OTHER SPECIFIED HEALTH STATUS Status: Acute Current Visit: Yes (5) DVT prophylaxis SNOMED Code(s): 052063318, 437976264 Code(s): Z29.9 - ENCOUNTER FOR PROPHYLACTIC MEASURES, UNSPECIFIED Status: Acute Current Visit: Yes - Problem List Review Problem List Initiated/Reviewed/Updated: Yes - My Orders Last 24 Hours: My Active Orders 01/25/21 Dinner Regular Diet [DIET] 01/25/21 20:59 Oxygen Therapy [RC] PRN Up ad Linsey [RC] ASDIRECTED VTE/DVT Education [RC] PER UNIT ROUTINE Vital Signs [RC] Q4H Respiratory Care Assess and Treatment [CONS] Routine Resuscitation Status Routine 01/25/21 21:00 Enoxaparin [Lovenox] 40 mg SUBCUT Q24H 01/25/21 21:02 CPAP [RESPCARE] Routine 01/25/21 21:03 RT Aerosol Therapy [RC] ASDIRECTED Albuterol [Ventolin HFA] 0 gm INH Q2H PRN 01/25/21 21:05 RT Post Treatment Assessment [RC] Click to Edit RT Pre-Treatment Assessment [RC] Click to Edit 01/25/21 21:06 RT Incentive Spirometry [RC] Q1HWA 01/25/21 21:07 Communication Order [RC] ROUTINE 01/25/21 21:08 Oxygen Therapy [RC] PRN 01/26/21 09:00 dexAMETHasone 4 mg PO DAILY 01/26/21 13:31 RT Aerosol Therapy [RC] ASDIRECTED 01/26/21 13:34 BILIRUBIN DIRECT [CHEM] Stat COMPREHENSIVE METABOLIC PN,CMP [CHEM] Stat 01/26/21 13:45 Potassium Chloride [Klor-Con M20] 40 meq PO DAILY 01/26/21 14:00 Albuterol/Ipratropium [DuoNeb 3.0-0.5 MG/3 ML] 3 ml NEB Q4HRRT 01/26/21 17:45 Remdesivir 100 mg Sodium Chloride 0.9% [Normal Saline AdvBag] 100 ml IV Q24H - Plan Plan:: Acute respiratory failure with hypoxemia secondary to COVID 19 pneumonia Continue with Oxygen supplementation to keep sats > 90% Duonebs Q6 and albuterol Q2 prn Continue to do incentive spirometry Q hr while awake and proning as tolerated. Covid 19 pneumonia Dexamethasone, Remdesivir and anticoagulation Obesity Life style modification. Full code status Generalized weakness due to COVID 19 infection Pt has been encouraged to get up and out of bed Will obtain a PT/OT consult. VTE prophylasix On lovenox 40 mg SQ Hypokalemia Replace K.
[2021-01-26] MEDS: guaiFENesin/Dextromethorphan 100-10 MG/5 ML Soln 10 ML Cup PO PRN ×2 (14:52→20:20)
[2021-01-26] MEDS: Potassium Chloride 20 MEQ Tab.ER PO SCH (14:52)
[2021-01-26] MEDS ORDERED: REMDESIVIR 100 MG in Sodium Chloride 0.9% 100 ML IV SCH (17:45)
[2021-01-26] MEDS ORDERED: Melatonin 3 MG Tab PO PRN (20:13)
[2021-01-26] MEDS: Enoxaparin 40 MG/0.4 ML Syringe SUBCUT SCH (20:21)
[2021-01-27] MEDS: guaiFENesin/Dextromethorphan 100-10 MG/5 ML Soln 10 ML Cup PO PRN ×3 (02:33→20:52)
[2021-01-27] MEDS: Albuterol/Ipratropium 3.0-0.5 MG/3 ML Neb Soln NEB SCH ×6 (02:33→22:45)
[2021-01-27] MEDS: buPROPion 150 MG Tab.ER PO SCH ×2 (02:33→09:19)
[2021-01-27] MEDS: Dexamethasone 4 MG Tab PO SCH (09:20)
[2021-01-27] MEDS: Potassium Chloride 20 MEQ Tab.ER PO SCH (09:20)
[2021-01-27] MEDS: Escitalopram 10 MG Tab PO SCH (12:47)
[2021-01-27] MEDS ORDERED: Potassium Chloride 20 MEQ Tab.ER PO ONE (13:28)
--- NOTE | 2021-01-27 13:38 | PCM.PN ---
- General Info Date of Service: 01/27/21 - Review of Systems Systems Review Comment:: reports trouble sleeping, shortness of breath stable - Patient Data Vitals - Most Recent: Last Vital Signs Temp 36.2 C 01/27/21 12:00 Pulse 85 01/27/21 12:00 Resp 18 01/27/21 12:00 BP 115/75 01/27/21 12:00 Pulse Ox 92 L 01/27/21 12:00 Weight - Most Recent: 95.254 kg I&O - Last 24 Hours: Intake & Output 01/26/21 01/27/21 01/27/21 22:59 06:59 14:59 Intake Total 1700 Output Total 800 Balance 900 Med Orders - Current: Current Medications Albuterol (Albuterol 8 Gm Inhaler) 0 gm INH Q2H PRN PRN Reason: Dyspnea Last Admin: 01/26/21 20:21 Dose: 2 puff Documented by: Albuterol/Ipratropium (Albuterol/Ipratropium 3.0-0.5 Mg/3 Ml Neb Soln) 3 ml NEB Q4HRRT [facility] Last Admin: 01/27/21 10:10 Dose: Not Given Documented by: Bupropion HCl (Bupropion 150 Mg Tab.Er) 300 mg PO DAILY [facility] Last Admin: 01/27/21 09:19 Dose: 300 mg Documented by: Dexamethasone (Dexamethasone 4 Mg Tab) 4 mg PO DAILY [facility] Stop: 02/04/21 09:01 Last Admin: 01/27/21 09:20 Dose: 4 mg Documented by: Enoxaparin Sodium (Enoxaparin 40 Mg/0.4 Ml Syringe) 40 mg SUBCUT Q24H [facility] Last Admin: 01/26/21 20:21 Dose: 40 mg Documented by: Escitalopram Oxalate (Escitalopram 10 Mg Tab) 20 mg PO DAILY [facility] Last Admin: 01/27/21 12:47 Dose: 20 mg Documented by: Guaifenesin/Dextromethorphan (Guaifenesin/Dextromethorphan 100-10 Mg/5 Ml Soln 10 Ml Cup) 10 ml PO Q4H PRN PRN Reason: Cough Last Admin: 01/27/21 09:19 Dose: 10 ml Documented by: Melatonin (Melatonin 3 Mg Tab) 6 mg PO BEDTIME PRN PRN Reason: Insomnia Last Admin: 01/26/21 21:54 Dose: 6 mg Documented by: Potassium Chloride (Potassium Chloride 20 Meq Tab.Er) 40 meq PO DAILY [facility] Last Admin: 01/27/21 09:20 Dose: 40 meq Documented by: Potassium Chloride (Potassium Chloride 20 Meq Tab.Er) 40 meq PO ONETIME ONE Stop: 01/27/21 13:29 Sodium Chloride (Sodium Chloride 0.9% 10 Ml Syringe) 10 ml FLUSH ASDIRECTED PRN PRN Reason: Keep Vein Open Last Admin: 01/25/21 19:13 Dose: 10 ml Documented by: Sodium Chloride (Sodium Chloride 0.9% 2.5 Ml Syringe) 2.5 ml FLUSH ASDIRECTED PRN PRN Reason: Keep Vein Open Last Admin: 01/25/21 19:13 Dose: 2.5 ml Documented by: Discontinued Medications Acetaminophen (Acetaminophen 500 Mg Tab) 1,000 mg PO ONETIME ONE Stop: 01/25/21 17:35 Last Admin: 01/25/21 17:48 Dose: 1,000 mg Documented by: Albuterol/Ipratropium (Albuterol/Ipratropium 3.0-0.5 Mg/3 Ml Neb Soln) 3 ml NEB Q6HRRT [facility] Last Admin: 01/26/21 12:19 Dose: 3 ml Documented by: Dexamethasone (Dexamethasone 10 Mg/Ml Sdv) 10 mg IVPUSH ONETIME ONE Stop: 01/25/21 19:16 Last Admin: 01/25/21 19:53 Dose: 10 mg Documented by: Sodium Chloride (Normal Saline) 1,000 mls @ 999 mls/hr IV BOLUS ONE Stop: 01/25/21 18:33 Last Admin: 01/25/21 17:48 Dose: 999 mls/hr Documented by: Remdesivir 200 mg/ Sodium (Chloride) 250 mls @ 250 mls/hr IV ONETIME ONE Stop: 01/25/21 19:16 Last Admin: 01/25/21 19:58 Dose: Not Given Documented by: Dextrose/Sodium Chloride (Dextrose 5%-1/2 Ns) 1,000 mls @ 75 mls/hr IV ASDIRECTED [facility] Stop: 01/26/21 10:19 Last Admin: 01/26/21 04:34 Dose: 75 mls/hr Documented by: Remdesivir 100 mg/ Sodium (Chloride) 100 mls @ 100 mls/hr IV Q24H [facility] Stop: 01/29/21 18:44 Iopamidol (Iopamidol 755 Mg/Ml 500 Ml Multipack Bottle) 100 ml IVPUSH ONETIME ONE Stop: 01/25/21 19:05 Last Admin: 01/25/21 19:05 Dose: 100 ml Documented by: Ketorolac Tromethamine (Ketorolac 30 Mg/Ml Sdv) 30 mg IVPUSH ONETIME ONE Stop: 01/25/21 17:35 Last Admin: 01/25/21 17:49 Dose: 30 mg Documented by: - Exam General: Alert, Oriented Lungs: Clear to Auscultation, Normal Respiratory Effort Cardiovascular: Regular Rate, Regular Rhythm, Tachycardia GI/Abdominal Exam: Normal Bowel Sounds, Soft, Non-Tender Extremities: Non-Tender, No Pedal Edema Skin: Warm, Dry, Intact Neurological: No New Focal Deficit - Patient Data Result Diagrams: 01/26/21 07:18 01/26/21 07:18 Sepsis Event Note - Evaluation Sepsis Screening Result: No Definite Risk - Focused Exam Vital Signs: Vital Signs Temp Pulse Resp BP Pulse Ox Pulse Ox 01/27/21 12:00 36.2 C 85 18 115/75 92 L 92 L 01/27/21 08:00 36.9 C 85 18 114/67 92 L 01/27/21 02:48 36.1 C 86 20 108/57 L 93 L 01/27/21 02:46 20 92 L 01/27/21 02:40 28 H 85 L - Problem List & Annotations (1) Acute respiratory disease due to COVID-19 virus SNOMED Code(s): 957637859, 334649212 Code(s): U07.1 - COVID-19; J06.9 - ACUTE UPPER RESPIRATORY INFECTION, UNSPECIFIED Status: Acute Current Visit: Yes (2) Hypoxia SNOMED Code(s): 763154804 Code(s): R09.02 - HYPOXEMIA Status: Acute Current Visit: Yes - Problem List Review Problem List Initiated/Reviewed/Updated: Yes - My Orders Last 24 Hours: My Active Orders 01/27/21 01:45 buPROPion [Wellbutrin XL] 300 mg PO DAILY 01/27/21 12:15 Escitalopram [Lexapro] 20 mg PO DAILY 01/27/21 13:28 Potassium Chloride [Klor-Con M20] 40 meq PO ONETIME ONE 01/28/21 05:11 CBC WITH AUTO DIFF [HEME] AM COMPREHENSIVE METABOLIC PN,CMP [CHEM] AM 01/29/21 05:11 CBC WITH AUTO DIFF [HEME] AM COMPREHENSIVE METABOLIC PN,CMP [CHEM] AM 01/30/21 05:11 CBC WITH AUTO DIFF [HEME] AM COMPREHENSIVE METABOLIC PN,CMP [CHEM] AM - Plan Plan:: 55 yo female admitted with acute respiratory failure secondary to COVID 19 pneumonia hypoxia: on 7 L NC Covid: continue Dexamethasone, did discuss starting remdesivir but patient refused lovenox for DVT prophylaxis
[2021-01-27] MEDS ORDERED: Dexamethasone 4 MG Tab PO ONE (13:42)
[2021-01-27] MEDS ORDERED: Acetaminophen 325 MG Tab PO PRN (16:23)
[2021-01-27] MEDS ORDERED: REMDESIVIR 200 MG in Sodium Chloride 0.9% 250 ML IV ONE (20:00)
[2021-01-27] MEDS: traZODone 50 MG Tab PO PRN (20:52)
[2021-01-27] MEDS: Enoxaparin 40 MG/0.4 ML Syringe SUBCUT SCH (20:52)
[2021-01-28] MEDS: Albuterol/Ipratropium 3.0-0.5 MG/3 ML Neb Soln NEB SCH ×6 (02:15→21:18)
[2021-01-28] MEDS: guaiFENesin/Dextromethorphan 100-10 MG/5 ML Soln 10 ML Cup PO PRN (04:14)
[2021-01-28 06:59] LABS: BLOOD UREA NITROGEN,BUN 15 mg/dL (7.0-18.0); CARBON DIOXIDE,CO2 32.4 mmol/L (21.0-32.0); CHLORIDE,CL 107 mmol/L (98-107); GLUCOSE RANDOM 121 mg/dL (74-106); POTASSIUM,K 4.7 mmol/L (3.5-5.1); SODIUM,NA 145 mmol/L (136-145)
[2021-01-28] MEDS: Escitalopram 10 MG Tab PO SCH (08:42)
[2021-01-28] MEDS: buPROPion 150 MG Tab.ER PO SCH (08:42)
[2021-01-28] MEDS: Dexamethasone 4 MG Tab PO SCH (08:43)
[2021-01-28] MEDS: Potassium Chloride 20 MEQ Tab.ER PO SCH (15:34)
[2021-01-28] MEDS: Enoxaparin 40 MG/0.4 ML Syringe SUBCUT SCH (21:06)
[2021-01-28] MEDS: traZODone 50 MG Tab PO PRN (21:12)
[2021-01-28] MEDS: REMDESIVIR 100 MG in Sodium Chloride 0.9% 100 ML IV SCH (21:13)
[2021-01-29] MEDS: Albuterol/Ipratropium 3.0-0.5 MG/3 ML Neb Soln NEB SCH ×4 (02:00→13:02)
[2021-01-29 07:42] LABS: BLOOD UREA NITROGEN,BUN 22 mg/dL (7.0-18.0); CARBON DIOXIDE,CO2 28.3 mmol/L (21.0-32.0); CHLORIDE,CL 107 mmol/L (98-107); GLUCOSE RANDOM 110 mg/dL (74-106); POTASSIUM,K 4.1 mmol/L (3.5-5.1); SODIUM,NA 144 mmol/L (136-145)
[2021-01-29] MEDS: Dexamethasone 4 MG Tab PO SCH (08:31)
[2021-01-29] MEDS: Escitalopram 10 MG Tab PO SCH (08:31)
[2021-01-29] MEDS: buPROPion 150 MG Tab.ER PO SCH (08:31)
[2021-01-29] MEDS: guaiFENesin/Dextromethorphan 100-10 MG/5 ML Soln 10 ML Cup PO PRN ×4 (08:38→20:25)
--- NOTE | 2021-01-29 10:17 | PCM.PN ---
- General Info Date of Service: 01/28/21 - Review of Systems Systems Review Comment:: feeling better - Patient Data Vitals - Most Recent: Last Vital Signs Temp 36.0 C L 01/29/21 08:00 Pulse 68 01/29/21 08:00 Resp 22 H 01/29/21 08:00 BP 125/78 01/29/21 08:00 Pulse Ox 91 L 01/29/21 08:00 Weight - Most Recent: 95.254 kg I&O - Last 24 Hours: Intake & Output 01/28/21 01/29/21 01/29/21 22:59 06:59 14:59 Intake Total 480 300 Output Total 600 Balance 480 -300 Lab Results Last 24 Hours: Laboratory Results - last 24 hr 01/29/21 01/29/21 Range/Units 06:24 06:24 WBC 5.50 (4.0-11.0) K/uL RBC 4.04 L (4.30-5.90) M/uL Hgb 11.8 L (12.0-16.0) g/dL Hct 36.4 (36.0-46.0) % MCV 90.1 (80.0-98.0) fL MCH 29.2 (27.0-32.0) pg MCHC 32.4 (31.0-37.0) g/dL RDW Std Deviation 45.9 (28.0-62.0) fl RDW Coeff of Fransisca 14 (11.0-15.0) % Plt Count 321 (150-400) K/uL MPV 10.10 (7.40-12.00) fL Neut % (Auto) 72.4 (48.0-80.0) % Lymph % (Auto) 15.1 L (16.0-40.0) % [place] % (Auto) 12.5 (0.0-15.0) % Eos % (Auto) 0.0 (0.0-7.0) % Baso % (Auto) 0.0 (0.0-1.5) % Neut # (Auto) 4.0 (1.4-5.7) K/uL Lymph # (Auto) 0.8 (0.6-2.4) K/uL [place] # (Auto) 0.7 (0.0-0.8) K/uL Eos # (Auto) 0.0 (0.0-0.7) K/uL Baso # (Auto) 0.0 (0.0-0.1) K/uL Nucleated RBC % 0.0 /100WBC Nucleated RBCs # 0 K/uL Sodium 144 (136-145) mmol/L Potassium 4.1 (3.5-5.1) mmol/L Chloride 107 (98-107) mmol/L Carbon Dioxide 28.3 (21.0-32.0) mmol/L BUN 22 H (7.0-18.0) mg/dL Creatinine 0.8 (0.6-1.0) mg/dL Est Cr Clr Drug Dosing 83.90 mL/min Estimated GFR (MDRD) > 60.0 ml/min Glucose 110 H (74-106) mg/dL Calcium 8.7 (8.5-10.1) mg/dL Total Bilirubin 0.5 (0.2-1.0) mg/dL AST 25 (15-37) IU/L ALT 37 (14-63) IU/L Alkaline Phosphatase 46 (46-116) U/L Total Protein 6.9 (6.4-8.2) g/dL Albumin 2.4 L (3.4-5.0) g/dL Globulin 4.5 H (2.6-4.0) g/dL Albumin/Globulin Ratio 0.5 L (0.9-1.6) Med Orders - Current: Current Medications Acetaminophen (Acetaminophen 325 Mg Tab) 650 mg PO Q4H PRN PRN Reason: Pain/Fever Albuterol (Albuterol 8 Gm Inhaler) 0 gm INH Q2H PRN PRN Reason: Dyspnea Last Admin: 01/26/21 20:21 Dose: 2 puff Documented by: Albuterol/Ipratropium (Albuterol/Ipratropium 3.0-0.5 Mg/3 Ml Neb Soln) 3 ml NEB Q4HRRT [facility] Last Admin: 01/29/21 09:09 Dose: Not Given Documented by: Bupropion HCl (Bupropion 150 Mg Tab.Er) 300 mg PO DAILY [facility] Last Admin: 01/29/21 08:31 Dose: 300 mg Documented by: Dexamethasone (Dexamethasone 4 Mg Tab) 6 mg PO DAILY [facility] Stop: 02/06/21 09:01 Last Admin: 01/29/21 08:31 Dose: 6 mg Documented by: Enoxaparin Sodium (Enoxaparin 40 Mg/0.4 Ml Syringe) 40 mg SUBCUT Q24H [facility] Last Admin: 01/28/21 21:06 Dose: 40 mg Documented by: Escitalopram Oxalate (Escitalopram 10 Mg Tab) 20 mg PO DAILY [facility] Last Admin: 01/29/21 08:31 Dose: 20 mg Documented by: Guaifenesin/Dextromethorphan (Guaifenesin/Dextromethorphan 100-10 Mg/5 Ml Soln 10 Ml Cup) 10 ml PO Q4H PRN PRN Reason: Cough Last Admin: 01/29/21 08:38 Dose: 10 ml Documented by: Remdesivir 100 mg/ Sodium (Chloride) 100 mls @ 100 mls/hr IV Q24H [facility] Stop: 01/31/21 20:59 Last Admin: 01/28/21 21:13 Dose: 100 mls/hr Documented by: Melatonin (Melatonin 3 Mg Tab) 6 mg PO BEDTIME PRN PRN Reason: Insomnia Last Admin: 01/26/21 21:54 Dose: 6 mg Documented by: Potassium Chloride (Potassium Chloride 20 Meq Tab.Er) 40 meq PO DAILY [facility] Last Admin: 01/28/21 15:34 Dose: Not Given Documented by: Sodium Chloride (Sodium Chloride 0.9% 10 Ml Syringe) 10 ml FLUSH ASDIRECTED PRN PRN Reason: Keep Vein Open Last Admin: 01/25/21 19:13 Dose: 10 ml Documented by: Sodium Chloride (Sodium Chloride 0.9% 2.5 Ml Syringe) 2.5 ml FLUSH ASDIRECTED PRN PRN Reason: Keep Vein Open Last Admin: 01/25/21 19:13 Dose: 2.5 ml Documented by: Trazodone HCl (Trazodone 50 Mg Tab) 50 mg PO BEDTIME PRN PRN Reason: Insomnia Last Admin: 01/28/21 21:12 Dose: 50 mg Documented by: Discontinued Medications Acetaminophen (Acetaminophen 500 Mg Tab) 1,000 mg PO ONETIME ONE Stop: 01/25/21 17:35 Last Admin: 01/25/21 17:48 Dose: 1,000 mg Documented by: Albuterol/Ipratropium (Albuterol/Ipratropium 3.0-0.5 Mg/3 Ml Neb Soln) 3 ml NEB Q6HRRT [facility] Last Admin: 01/26/21 12:19 Dose: 3 ml Documented by: Dexamethasone (Dexamethasone 10 Mg/Ml Sdv) 10 mg IVPUSH ONETIME ONE Stop: 01/25/21 19:16 Last Admin: 01/25/21 19:53 Dose: 10 mg Documented by: Dexamethasone (Dexamethasone 4 Mg Tab) 4 mg PO DAILY [facility] Stop: 02/04/21 09:01 Last Admin: 01/27/21 09:20 Dose: 4 mg Documented by: Dexamethasone (Dexamethasone 4 Mg Tab) 2 mg PO ONETIME ONE Stop: 01/27/21 13:43 Last Admin: 01/27/21 15:08 Dose: 2 mg Documented by: Sodium Chloride (Normal Saline) 1,000 mls @ 999 mls/hr IV BOLUS ONE Stop: 01/25/21 18:33 Last Admin: 01/25/21 17:48 Dose: 999 mls/hr Documented by: Remdesivir 200 mg/ Sodium (Chloride) 250 mls @ 250 mls/hr IV ONETIME ONE Stop: 01/25/21 19:16 Last Admin: 01/25/21 19:58 Dose: Not Given Documented by: Dextrose/Sodium Chloride (Dextrose 5%-1/2 Ns) 1,000 mls @ 75 mls/hr IV ASDIRECTED [facility] Stop: 01/26/21 10:19 Last Admin: 01/26/21 04:34 Dose: 75 mls/hr Documented by: Remdesivir 100 mg/ Sodium (Chloride) 100 mls @ 100 mls/hr IV Q24H [facility] Stop: 01/29/21 18:44 Remdesivir 200 mg/ Sodium (Chloride) 250 mls @ 250 mls/hr IV ONETIME ONE Stop: 01/27/21 20:01 Last Admin: 01/27/21 20:50 Dose: 250 mls/hr Documented by: Iopamidol (Iopamidol 755 Mg/Ml 500 Ml Multipack Bottle) 100 ml IVPUSH ONETIME ONE Stop: 01/25/21 19:05 Last Admin: 01/25/21 19:05 Dose: 100 ml Documented by: Ketorolac Tromethamine (Ketorolac 30 Mg/Ml Sdv) 30 mg IVPUSH ONETIME ONE Stop: 11/26/21 17:35 Last Admin: 01/25/21 17:49 Dose: 30 mg Documented by: Potassium Chloride (Potassium Chloride 20 Meq Tab.Er) 40 meq PO ONETIME ONE Stop: 01/27/21 13:29 Last Admin: 01/27/21 15:08 Dose: 40 meq Documented by: - Exam General: Alert, Oriented Lungs: Clear to Auscultation, Normal Respiratory Effort Cardiovascular: Regular Rate, Regular Rhythm GI/Abdominal Exam: Soft, Non-Tender, No Distention Extremities: Non-Tender, No Pedal Edema Skin: Warm, Dry, Intact Neurological: No New Focal Deficit - Patient Data Lab Results Last 24 hrs: Laboratory Results - last 24 hr 01/29/21 01/29/21 Range/Units 06:24 06:24 WBC 5.50 (4.0-11.0) K/uL RBC 4.04 L (4.30-5.90) M/uL Hgb 11.8 L (12.0-16.0) g/dL Hct 36.4 (36.0-46.0) % MCV 90.1 (80.0-98.0) fL MCH 29.2 (27.0-32.0) pg MCHC 32.4 (31.0-37.0) g/dL RDW Std Deviation 45.9 (28.0-62.0) fl RDW Coeff of Fransisca 14 (11.0-15.0) % Plt Count 321 (150-400) K/uL MPV 10.10 (7.40-12.00) fL Neut % (Auto) 72.4 (48.0-80.0) % Lymph % (Auto) 15.1 L (16.0-40.0) % [place] % (Auto) 12.5 (0.0-15.0) % Eos % (Auto) 0.0 (0.0-7.0) % Baso % (Auto) 0.0 (0.0-1.5) % Neut # (Auto) 4.0 (1.4-5.7) K/uL Lymph # (Auto) 0.8 (0.6-2.4) K/uL [place] # (Auto) 0.7 (0.0-0.8) K/uL Eos # (Auto) 0.0 (0.0-0.7) K/uL Baso # (Auto) 0.0 (0.0-0.1) K/uL Nucleated RBC % 0.0 /100WBC Nucleated RBCs # 0 K/uL Sodium 144 (136-145) mmol/L Potassium 4.1 (3.5-5.1) mmol/L Chloride 107 (98-107) mmol/L Carbon Dioxide 28.3 (21.0-32.0) mmol/L BUN 22 H (7.0-18.0) mg/dL Creatinine 0.8 (0.6-1.0) mg/dL Est Cr Clr Drug Dosing 83.90 mL/min Estimated GFR (MDRD) > 60.0 ml/min Glucose 110 H (74-106) mg/dL Calcium 8.7 (8.5-10.1) mg/dL Total Bilirubin 0.5 (0.2-1.0) mg/dL AST 25 (15-37) IU/L ALT 37 (14-63) IU/L Alkaline Phosphatase 46 (46-116) U/L Total Protein 6.9 (6.4-8.2) g/dL Albumin 2.4 L (3.4-5.0) g/dL Globulin 4.5 H (2.6-4.0) g/dL Albumin/Globulin Ratio 0.5 L (0.9-1.6) Result Diagrams: 01/29/21 06:24 01/29/21 06:24 Sepsis Event Note - Evaluation Sepsis Screening Result: No Definite Risk - Focused Exam Vital Signs: Vital Signs Temp Pulse Resp BP Pulse Ox 01/29/21 08:00 36.0 C L 68 22 H 125/78 91 L 01/29/21 04:25 36.1 C 61 16 114/70 90 L 01/29/21 00:03 36.1 C 62 18 109/67 91 L - Problem List & Annotations (1) Acute respiratory disease due to COVID-19 virus SNOMED Code(s): 578736161, [id number] Code(s): U07.1 - COVID-19; J06.9 - ACUTE UPPER RESPIRATORY INFECTION, UNSPE CIFIED Status: Acute Current Visit: Yes (2) Hypoxia SNOMED Code(s): 072867306 Code(s): R09.02 - HYPOXEMIA Status: Acute Current Visit: Yes - Problem List Review Problem List Initiated/Reviewed/Updated: Yes - My Orders Last 24 Hours: My Active Orders 01/28/21 20:00 Remdesivir 100 mg Sodium Chloride 0.9% [Normal Saline AdvBag] 100 ml IV Q24H 01/30/21 05:11 CBC WITH AUTO DIFF [HEME] AM COMPREHENSIVE METABOLIC PN,CMP [CHEM] AM - Plan Plan:: 55 yo female admitted with acute respiratory failure secondary to COVID 19 pneumonia hypoxia: on 7 L NC Covid: continue Dexamethasone, has agreed to start remdesivir. lovenox for DVT prophylaxis
[2021-01-29] MEDS: Potassium Chloride 20 MEQ Tab.ER PO SCH (11:04)
--- NOTE | 2021-01-29 14:01 | PCM.PN ---
- General Info Date of Service: 01/29/21 - Review of Systems Systems Review Comment:: feeling better, short of breath with exertion. - Patient Data Vitals - Most Recent: Last Vital Signs Temp 36.7 C 01/29/21 12:43 Pulse 71 01/29/21 12:43 Resp 17 01/29/21 12:43 BP 122/77 01/29/21 12:43 Pulse Ox 92 L 01/29/21 12:43 Weight - Most Recent: 95.254 kg I&O - Last 24 Hours: Intake & Output 01/28/21 01/29/21 01/29/21 22:59 06:59 14:59 Intake Total 480 300 Output Total 600 Balance 480 -300 Lab Results Last 24 Hours: Laboratory Results - last 24 hr 01/29/21 01/29/21 Range/Units 06:24 06:24 WBC 5.50 (4.0-11.0) K/uL RBC 4.04 L (4.30-5.90) M/uL Hgb 11.8 L (12.0-16.0) g/dL Hct 36.4 (36.0-46.0) % MCV 90.1 (80.0-98.0) fL MCH 29.2 (27.0-32.0) pg MCHC 32.4 (31.0-37.0) g/dL RDW Std Deviation 45.9 (28.0-62.0) fl RDW Coeff of Fransisca 14 (11.0-15.0) % Plt Count 321 (150-400) K/uL MPV 10.10 (7.40-12.00) fL Neut % (Auto) 72.4 (48.0-80.0) % Lymph % (Auto) 15.1 L (16.0-40.0) % [place] % (Auto) 12.5 (0.0-15.0) % Eos % (Auto) 0.0 (0.0-7.0) % Baso % (Auto) 0.0 (0.0-1.5) % Neut # (Auto) 4.0 (1.4-5.7) K/uL Lymph # (Auto) 0.8 (0.6-2.4) K/uL [place] # (Auto) 0.7 (0.0-0.8) K/uL Eos # (Auto) 0.0 (0.0-0.7) K/uL Baso # (Auto) 0.0 (0.0-0.1) K/uL Nucleated RBC % 0.0 /100WBC Nucleated RBCs # 0 K/uL Sodium 144 (136-145) mmol/L Potassium 4.1 (3.5-5.1) mmol/L Chloride 107 (98-107) mmol/L Carbon Dioxide 28.3 (21.0-32.0) mmol/L BUN 22 H (7.0-18.0) mg/dL Creatinine 0.8 (0.6-1.0) mg/dL Est Cr Clr Drug Dosing 83.90 mL/min Estimated GFR (MDRD) > 60.0 ml/min Glucose 110 H (74-106) mg/dL Calcium 8.7 (8.5-10.1) mg/dL Total Bilirubin 0.5 (0.2-1.0) mg/dL AST 25 (15-37) IU/L ALT 37 (14-63) IU/L Alkaline Phosphatase 46 (46-116) U/L Total Protein 6.9 (6.4-8.2) g/dL Albumin 2.4 L (3.4-5.0) g/dL Globulin 4.5 H (2.6-4.0) g/dL Albumin/Globulin Ratio 0.5 L (0.9-1.6) Med Orders - Current: Current Medications Acetaminophen (Acetaminophen 325 Mg Tab) 650 mg PO Q4H PRN PRN Reason: Pain/Fever Albuterol (Albuterol 8 Gm Inhaler) 0 gm INH Q2H PRN PRN Reason: Dyspnea Last Admin: 01/26/21 20:21 Dose: 2 puff Documented by: Albuterol/Ipratropium (Albuterol/Ipratropium 3.0-0.5 Mg/3 Ml Neb Soln) 3 ml NEB Q4HRRT [facility] Last Admin: 01/29/21 13:02 Dose: Not Given Documented by: Bupropion HCl (Bupropion 150 Mg Tab.Er) 300 mg PO DAILY [facility] Last Admin: 01/29/21 08:31 Dose: 300 mg Documented by: Dexamethasone (Dexamethasone 4 Mg Tab) 6 mg PO DAILY [facility] Stop: 02/06/21 09:01 Last Admin: 01/29/21 08:31 Dose: 6 mg Documented by: Enoxaparin Sodium (Enoxaparin 40 Mg/0.4 Ml Syringe) 40 mg SUBCUT Q24H [facility] Last Admin: 01/28/21 21:06 Dose: 40 mg Documented by: Escitalopram Oxalate (Escitalopram 10 Mg Tab) 20 mg PO DAILY [facility] Last Admin: 01/29/21 08:31 Dose: 20 mg Documented by: Guaifenesin/Dextromethorphan (Guaifenesin/Dextromethorphan 100-10 Mg/5 Ml Soln 10 Ml Cup) 10 ml PO Q4H PRN PRN Reason: Cough Last Admin: 01/29/21 12:40 Dose: 10 ml Documented by: Remdesivir 100 mg/ Sodium (Chloride) 100 mls @ 100 mls/hr IV Q24H [facility] Stop: 01/31/21 20:59 Last Admin: 01/28/21 21:13 Dose: 100 mls/hr Documented by: Melatonin (Melatonin 3 Mg Tab) 6 mg PO BEDTIME PRN PRN Reason: Insomnia Last Admin: 01/26/21 21:54 Dose: 6 mg Documented by: Potassium Chloride (Potassium Chloride 20 Meq Tab.Er) 40 meq PO DAILY [facility] Last Admin: 01/29/21 11:04 Dose: Not Given Documented by: Sodium Chloride (Sodium Chloride 0.9% 10 Ml Syringe) 10 ml FLUSH ASDIRECTED PRN PRN Reason: Keep Vein Open Last Admin: 01/25/21 19:13 Dose: 10 ml Documented by: Sodium Chloride (Sodium Chloride 0.9% 2.5 Ml Syringe) 2.5 ml FLUSH ASDIRECTED PRN PRN Reason: Keep Vein Open Last Admin: 01/25/21 19:13 Dose: 2.5 ml Documented by: Trazodone HCl (Trazodone 50 Mg Tab) 50 mg PO BEDTIME PRN PRN Reason: Insomnia Last Admin: 01/28/21 21:12 Dose: 50 mg Documented by: Discontinued Medications Acetaminophen (Acetaminophen 500 Mg Tab) 1,000 mg PO ONETIME ONE Stop: 01/25/21 17:35 Last Admin: 01/25/21 17:48 Dose: 1,000 mg Documented by: Albuterol/Ipratropium (Albuterol/Ipratropium 3.0-0.5 Mg/3 Ml Neb Soln) 3 ml NEB Q6HRRT [facility] Last Admin: 01/26/21 12:19 Dose: 3 ml Documented by: Dexamethasone (Dexamethasone 10 Mg/Ml Sdv) 10 mg IVPUSH ONETIME ONE Stop: 01/25/21 19:16 Last Admin: 01/25/21 19:53 Dose: 10 mg Documented by: Dexamethasone (Dexamethasone 4 Mg Tab) 4 mg PO DAILY [facility] Stop: 02/04/21 09:01 Last Admin: 01/27/21 09:20 Dose: 4 mg Documented by: Dexamethasone (Dexamethasone 4 Mg Tab) 2 mg PO ONETIME ONE Stop: 01/27/21 13:43 Last Admin: 01/27/21 15:08 Dose: 2 mg Documented by: Sodium Chloride (Normal Saline) 1,000 mls @ 999 mls/hr IV BOLUS ONE Stop: 01/25/21 18:33 Last Admin: 01/25/21 17:48 Dose: 999 mls/hr Documented by: Remdesivir 200 mg/ Sodium (Chloride) 250 mls @ 250 mls/hr IV ONETIME ONE Stop: 01/25/21 19:16 Last Admin: 01/25/21 19:58 Dose: Not Given Documented by: Dextrose/Sodium Chloride (Dextrose 5%-1/2 Ns) 1,000 mls @ 75 mls/hr IV ASDIRECTED [facility] Stop: 01/26/21 10:19 Last Admin: 01/26/21 04:34 Dose: 75 mls/hr Documented by: Remdesivir 100 mg/ Sodium (Chloride) 100 mls @ 100 mls/hr IV Q24H [facility] Stop: 01/29/21 18:44 Remdesivir 200 mg/ Sodium (Chloride) 250 mls @ 250 mls/hr IV ONETIME ONE Stop: 01/27/21 20:01 Last Admin: 01/27/21 20:50 Dose: 250 mls/hr Documented by: Iopamidol (Iopamidol 755 Mg/Ml 500 Ml Multipack Bottle) 100 ml IVPUSH ONETIME ONE Stop: 01/25/21 19:05 Last Admin: 01/25/21 19:05 Dose: 100 ml Documented by: Ketorolac Tromethamine (Ketorolac 30 Mg/Ml Sdv) 30 mg IVPUSH ONETIME ONE Stop: 01/25/21 17:35 Last Admin: 01/25/21 17:49 Dose: 30 mg Documented by: Potassium Chloride (Potassium Chloride 20 Meq Tab.Er) 40 meq PO ONETIME ONE Stop: 01/27/21 13:29 Last Admin: 01/27/21 15:08 Dose: 40 meq Documented by: - Exam General: Alert, Oriented Neck: Supple Lungs: Clear to Auscultation, Normal Respiratory Effort Cardiovascular: Regular Rate, Regular Rhythm GI/Abdominal Exam: Soft, Non-Tender, No Distention Extremities: Non-Tender Skin: Warm, Dry, Intact Neurological: No New Focal Deficit - Patient Data Lab Results Last 24 hrs: Laboratory Results - last 24 hr 01/29/21 01/29/21 Range/Units 06:24 06:24 WBC 5.50 (4.0-11.0) K/uL RBC 4.04 L (4.30-5.90) M/uL Hgb 11.8 L (12.0-16.0) g/dL Hct 36.4 (36.0-46.0) % MCV 90.1 (80.0-98.0) fL MCH 29.2 (27.0-32.0) pg MCHC 32.4 (31.0-37.0) g/dL RDW Std Deviation 45.9 (28.0-62.0) fl RDW Coeff of Fransisca 14 (11.0-15.0) % Plt Count 321 (150-400) K/uL MPV 10.10 (7.40-12.00) fL Neut % (Auto) 72.4 (48.0-80.0) % Lymph % (Auto) 15.1 L (16.0-40.0) % [place] % (Auto) 12.5 (0.0-15.0) % Eos % (Auto) 0.0 (0.0-7.0) % Baso % (Auto) 0.0 (0.0-1.5) % Neut # (Auto) 4.0 (1.4-5.7) K/uL Lymph # (Auto) 0.8 (0.6-2.4) K/uL [place] # (Auto) 0.7 (0.0-0.8) K/uL Eos # (Auto) 0.0 (0.0-0.7) K/uL Baso # (Auto) 0.0 (0.0-0.1) K/uL Nucleated RBC % 0.0 /100WBC Nucleated RBCs # 0 K/uL Sodium 144 (136-145) mmol/L Potassium 4.1 (3.5-5.1) mmol/L Chloride 107 (98-107) mmol/L Carbon Dioxide 28.3 (21.0-32.0) mmol/L BUN 22 H (7.0-18.0) mg/dL Creatinine 0.8 (0.6-1.0) mg/dL Est Cr Clr Drug Dosing 83.90 mL/min Estimated GFR (MDRD) > 60.0 ml/min Glucose 110 H (74-106) mg/dL Calcium 8.7 (8.5-10.1) mg/dL Total Bilirubin 0.5 (0.2-1.0) mg/dL AST 25 (15-37) IU/L ALT 37 (14-63) IU/L Alkaline Phosphatase 46 (46-116) U/L Total Protein 6.9 (6.4-8.2) g/dL Albumin 2.4 L (3.4-5.0) g/dL Globulin 4.5 H (2.6-4.0) g/dL Albumin/Globulin Ratio 0.5 L (0.9-1.6) Result Diagrams: 01/29/21 06:24 01/29/21 06:24 Sepsis Event Note - Evaluation Sepsis Screening Result: No Definite Risk - Focused Exam Vital Signs: Vital Signs Temp Pulse Resp BP Pulse Ox 01/29/21 12:43 36.7 C 71 17 122/77 92 L 01/29/21 08:00 36.0 C L 68 22 H 125/78 91 L 01/29/21 04:25 36.1 C 61 16 114/70 90 L - Problem List & Annotations (1) Acute respiratory disease due to COVID-19 virus SNOMED Code(s): 933879540, 646844907 Code(s): U07.1 - COVID-19; J06.9 - ACUTE UPPER RESPIRATORY INFECTION, UNSPECIFIED Status: Acute Current Visit: Yes (2) Hypoxia SNOMED Code(s): 441006596 Code(s): R09.02 - HYPOXEMIA Status: Acute Current Visit: Yes - Problem List Review Problem List Initiated/Reviewed/Updated: Yes - My Orders Last 24 Hours: My Active Orders 01/28/21 20:00 Remdesivir 100 mg Sodium Chloride 0.9% [Normal Saline AdvBag] 100 ml IV Q24H 01/30/21 05:11 CBC WITH AUTO DIFF [HEME] AM COMPREHENSIVE METABOLIC PN,CMP [CHEM] AM - Plan Plan:: 55 yo female admitted with acute respiratory failure secondary to COVID 19 pneumonia hypoxia: on 7 L NC Covid: continue Dexamethasone, and remdesivir. lovenox for DVT prophylaxis
[2021-01-29] MEDS: Enoxaparin 40 MG/0.4 ML Syringe SUBCUT SCH (20:25)
[2021-01-29] MEDS: REMDESIVIR 100 MG in Sodium Chloride 0.9% 100 ML IV SCH (20:26)
[2021-01-29] MEDS: traZODone 50 MG Tab PO PRN (20:26)
[2021-01-30 07:34] LABS: CARBON DIOXIDE,CO2 30.9 mmol/L (21.0-32.0); POTASSIUM,K 4.1 mmol/L (3.5-5.1)
[2021-01-30] MEDS: Escitalopram 10 MG Tab PO SCH (09:05)
[2021-01-30] MEDS: guaiFENesin/Dextromethorphan 100-10 MG/5 ML Soln 10 ML Cup PO PRN (09:05)
[2021-01-30] MEDS: Dexamethasone 4 MG Tab PO SCH (09:06)
[2021-01-30] MEDS: buPROPion 150 MG Tab.ER PO SCH (09:06)
[2021-01-30] MEDS: Potassium Chloride 20 MEQ Tab.ER PO SCH (09:09)
[2021-01-30] MEDS ORDERED: Fluticasone Propionate Nasal Spray 16 GM Bottle NASBOTH SCH (09:49)
--- NOTE | 2021-01-30 09:58 | PCM.PN ---
- General Info Date of Service: 01/30/21 Subjective Update: The patient is a 55-year-old female, on day 6 of service, who has a significant past medical history of insomnia, was admitted to the medical floor due to acute respiratory failure secondary to COVID-19 pneumonia. Upon interview with the patient today, she feels weak when ambulating around her room but this subsides when she is at rest. She is also complaining of a cough that is mostly dry but occasionally produces clear sputum, her cough is more prominent with exertion. With her oxygen apparatus in place, she is also complaining of nasal dryness which is irritating and as such we will provide her with saline nasal spray 0.6% every 6 hours. She is currently saturating 93% on 7 L of oxygen, we will continue to wean her down as tolerated. She is eating and drinking without any issues and has a healthy appetite. The patient is sleeping well. She denies chest pain, palpitations, nausea, vomiting, fever, and any problems with urination and/or defecation. The patient has no other concerns at this time. - Review of Systems General: Reports: Weakness, Fatigue. Denies: Fever HEENT: Denies: Headaches, Sore Throat Pulmonary: Reports: Shortness of Breath, Cough, Sputum Cardiovascular: Denies: Chest Pain, Palpitations Gastrointestinal: Denies: Abdominal Pain Genitourinary: Denies: Dysuria - Patient Data Vitals - Most Recent: Last Vital Signs Temp 97.0 F 01/30/21 08:00 Pulse 61 01/30/21 08:00 Resp 20 01/30/21 08:00 BP 117/76 01/30/21 08:00 Pulse Ox 93 L 01/30/21 08:00 Weight - Most Recent: 210 lb I&O - Last 24 Hours: Intake & Output 01/29/21 01/30/21 01/30/21 22:59 06:59 14:59 Intake Total 640 800 Output Total 600 400 Balance 40 400 Lab Results Last 24 Hours: Laboratory Results - last 24 hr 01/30/21 01/30/21 Range/Units 06:11 06:11 WBC 6.47 (4.0-11.0) K/uL RBC 4.18 L (4.30-5.90) M/uL Hgb 12.1 (12.0-16.0) g/dL Hct 37.6 (36.0-46.0) % MCV 90.0 (80.0-98.0) fL MCH 28.9 (27.0-32.0) pg MCHC 32.2 (31.0-37.0) g/dL RDW Std Deviation 45.4 (28.0-62.0) fl RDW Coeff of Fransisca 14 (11.0-15.0) % Plt Count 366 (150-400) K/uL MPV 10.00 (7.40-12.00) fL Add Manual Diff YES Neutrophils % (Manual) 65 (48.0-80.0) % Band Neutrophils % 4 % Lymphocytes % (Manual) 18 (16.0-40.0) % Monocytes % (Manual) 12 (0.0-15.0) % Eosinophils % (Manual) 1 (0.0-7.0) % Nucleated RBC % 0.0 /100WBC Absolute Seg Neuts 4.2 (1.4-5.7) Band Neutrophils # 0.3 Lymphocytes # (Manual) 1.2 (0.6-2.4) Monocytes # (Manual) 0.8 (0.0-0.8) Eosinophils # (Manual) 0.1 (0.0-0.7) Nucleated RBCs # 0 K/uL Sodium 145 (136-145) mmol/L Potassium 4.1 (3.5-5.1) mmol/L Chloride 108 H (98-107) mmol/L Carbon Dioxide 30.9 (21.0-32.0) mmol/L BUN 27 H (7.0-18.0) mg/dL Creatinine 1.0 (0.6-1.0) mg/dL Est Cr Clr Drug Dosing 67.12 mL/min Estimated GFR (MDRD) 57.1 ml/min Glucose 104 (74-106) mg/dL Calcium 8.5 (8.5-10.1) mg/dL Total Bilirubin 0.5 (0.2-1.0) mg/dL AST 34 (15-37) IU/L ALT 51 (14-63) IU/L Alkaline Phosphatase 46 (46-116) U/L Total Protein 6.8 (6.4-8.2) g/dL Albumin 2.4 L (3.4-5.0) g/dL Globulin 4.4 H (2.6-4.0) g/dL Albumin/Globulin Ratio 0.6 L (0.9-1.6) Med Orders - Current: Current Medications Acetaminophen (Acetaminophen 325 Mg Tab) 650 mg PO Q4H PRN PRN Reason: Pain/Fever Albuterol (Albuterol 8 Gm Inhaler) 0 gm INH Q2H PRN PRN Reason: Dyspnea Last Admin: 01/26/21 20:21 Dose: 2 puff Documented by: Bupropion HCl (Bupropion 150 Mg Tab.Er) 300 mg PO DAILY [facility] Last Admin: 01/30/21 09:06 Dose: 300 mg Documented by: Dexamethasone (Dexamethasone 4 Mg Tab) 6 mg PO DAILY [facility] Stop: 02/06/21 09:01 Last Admin: 01/30/21 09:06 Dose: 6 mg Documented by: Enoxaparin Sodium (Enoxaparin 40 Mg/0.4 Ml Syringe) 40 mg SUBCUT Q24H [facility] Last Admin: 01/29/21 20:25 Dose: 40 mg Documented by: Escitalopram Oxalate (Escitalopram 10 Mg Tab) 20 mg PO DAILY [facility] Last Admin: 01/30/21 09:05 Dose: 20 mg Documented by: Fluticasone Propionate (Fluticasone Propionate Nasal [place] 16 Gm Bottle) 1 gm NASBOTH Q8H PRN PRN Reason: Nasal Dryness Guaifenesin/Dextromethorphan (Guaifenesin/Dextromethorphan 100-10 Mg/5 Ml Soln 10 Ml Cup) 10 ml PO Q4H PRN PRN Reason: Cough Last Admin: 01/30/21 09:05 Dose: 10 ml Documented by: Remdesivir 100 mg/ Sodium (Chloride) 100 mls @ 100 mls/hr IV Q24H [facility] Stop: 01/31/21 20:59 Last Admin: 01/29/21 20:26 Dose: 100 mls/hr Documented by: Melatonin (Melatonin 3 Mg Tab) 6 mg PO BEDTIME PRN PRN Reason: Insomnia Last Admin: 01/26/21 21:54 Dose: 6 mg Documented by: Potassium Chloride (Potassium Chloride 20 Meq Tab.Er) 40 meq PO DAILY [facility] Last Admin: 01/30/21 09:09 Dose: Not Given Documented by: Sodium Chloride (Sodium Chloride 0.9% 10 Ml Syringe) 10 ml FLUSH ASDIRECTED PRN PRN Reason: Keep Vein Open Last Admin: 01/25/21 19:13 Dose: 10 ml Documented by: Sodium Chloride (Sodium Chloride 0.9% 2.5 Ml Syringe) 2.5 ml FLUSH ASDIRECTED PRN PRN Reason: Keep Vein Open Last Admin: 01/25/21 19:13 Dose: 2.5 ml Documented by: Trazodone HCl (Trazodone 50 Mg Tab) 50 mg PO BEDTIME PRN PRN Reason: Insomnia Last Admin: 01/29/21 20:26 Dose: 50 mg Documented by: Discontinued Medications Acetaminophen (Acetaminophen 500 Mg Tab) 1,000 mg PO ONETIME ONE Stop: 01/25/21 17:35 Last Admin: 01/25/21 17:48 Dose: 1,000 mg Documented by: Albuterol/Ipratropium (Albuterol/Ipratropium 3.0-0.5 Mg/3 Ml Neb Soln) 3 ml NEB Q6HRRT [facility] Last Admin: 01/26/21 12:19 Dose: 3 ml Documented by: Albuterol/Ipratropium (Albuterol/Ipratropium 3.0-0.5 Mg/3 Ml Neb Soln) 3 ml NEB Q4HRRT [facility] Last Admin: 01/29/21 13:02 Dose: Not Given Documented by: Dexamethasone (Dexamethasone 10 Mg/Ml Sdv) 10 mg IVPUSH ONETIME ONE Stop: 01/25/21 19:16 Last Admin: 01/25/21 19:53 Dose: 10 mg Documented by: Dexamethasone (Dexamethasone 4 Mg Tab) 4 mg PO DAILY [facility] Stop: 02/04/21 09:01 Last Admin: 01/27/21 09:20 Dose: 4 mg Documented by: Dexamethasone (Dexamethasone 4 Mg Tab) 2 mg PO ONETIME ONE Stop: 01/27/21 13:43 Last Admin: 01/27/21 15:08 Dose: 2 mg Documented by: Sodium Chloride (Normal Saline) 1,000 mls @ 999 mls/hr IV BOLUS ONE Stop: 01/25/21 18:33 Last Admin: 01/25/21 17:48 Dose: 999 mls/hr Documented by: Remdesivir 200 mg/ Sodium (Chloride) 250 mls @ 250 mls/hr IV ONETIME ONE Stop: 01/25/21 19:16 Last Admin: 01/25/21 19:58 Dose: Not Given Documented by: Dextrose/Sodium Chloride (Dextrose 5%-1/2 Ns) 1,000 mls @ 75 mls/hr IV ASDIRECTED [facility] Stop: 01/26/21 10:19 Last Admin: 01/26/21 04:34 Dose: 75 mls/hr Documented by: Remdesivir 100 mg/ Sodium (Chloride) 100 mls @ 100 mls/hr IV Q24H [facility] Stop: 01/29/21 18:44 Remdesivir 200 mg/ Sodium (Chloride) 250 mls @ 250 mls/hr IV ONETIME ONE Stop: 01/27/21 20:01 Last Admin: 01/27/21 20:50 Dose: 250 mls/hr Documented by: Iopamidol (Iopamidol 755 Mg/Ml 500 Ml Multipack Bottle) 100 ml IVPUSH ONETIME ONE Stop: 01/25/21 19:05 Last Admin: 01/25/21 19:05 Dose: 100 ml Documented by: Ketorolac Tromethamine (Ketorolac 30 Mg/Ml Sdv) 30 mg IVPUSH ONETIME ONE Stop: 01/25/21 17:35 Last Admin: 01/25/21 17:49 Dose: 30 mg Documented by: Potassium Chloride (Potassium Chloride 20 Meq Tab.Er) 40 meq PO ONETIME ONE Stop: 01/27/21 13:29 Last Admin: 01/27/21 15:08 Dose: 40 meq Documented by: - Exam General: Alert, Oriented, Cooperative HEENT: Other (Dry mucous membranes/nasal dryness) Neck: Trachea Midline Lungs: Rhonchi Cardiovascular: Regular Rate, Regular Rhythm GI/Abdominal Exam: Normal Bowel Sounds, Soft, Non-Tender - Patient Data Lab Results Last 24 hrs: Laboratory Results - last 24 hr 01/30/21 01/30/21 Range/Units 06:11 06:11 WBC 6.47 (4.0-11.0) K/uL RBC 4.18 L (4.30-5.90) M/uL Hgb 12.1 (12.0-16.0) g/dL Hct 37.6 (36.0-46.0) % MCV 90.0 (80.0-98.0) fL MCH 28.9 (27.0-32.0) pg MCHC 32.2 (31.0-37.0) g/dL RDW Std Deviation 45.4 (28.0-62.0) fl RDW Coeff of Fransisca 14 (11.0-15.0) % Plt Count 366 (150-400) K/uL MPV 10.00 (7.40-12.00) fL Add Manual Diff YES Neutrophils % (Manual) 65 (48.0-80.0) % Band Neutrophils % 4 % Lymphocytes % (Manual) 18 (16.0-40.0) % Monocytes % (Manual) 12 (0.0-15.0) % Eosinophils % (Manual) 1 (0.0-7.0) % Nucleated RBC % 0.0 /100WBC Absolute Seg Neuts 4.2 (1.4-5.7) Band Neutrophils # 0.3 Lymphocytes # (Manual) 1.2 (0.6-2.4) Monocytes # (Manual) 0.8 (0.0-0.8) Eosinophils # (Manual) 0.1 (0.0-0.7) Nucleated RBCs # 0 K/uL Sodium 145 (136-145) mmol/L Potassium 4.1 (3.5-5.1) mmol/L Chloride 108 H (98-107) mmol/L Carbon Dioxide 30.9 (21.0-32.0) mmol/L BUN 27 H (7.0-18.0) mg/dL Creatinine 1.0 (0.6-1.0) mg/dL Est Cr Clr Drug Dosing 67.12 mL/min Estimated GFR (MDRD) 57.1 ml/min Glucose 104 (74-106) mg/dL Calcium 8.5 (8.5-10.1) mg/dL Total Bilirubin 0.5 (0.2-1.0) mg/dL AST 34 (15-37) IU/L ALT 51 (14-63) IU/L Alkaline Phosphatase 46 (46-116) U/L Total Protein 6.8 (6.4-8.2) g/dL Albumin 2.4 L (3.4-5.0) g/dL Globulin 4.4 H (2.6-4.0) g/dL Albumin/Globulin Ratio 0.6 L (0.9-1.6) Result Diagrams: 01/30/21 06:11 01/30/21 06:11 Sepsis Event Note - Evaluation Sepsis Screening Result: No Definite Risk - Focused Exam Vital Signs: Vital Signs Temp Pulse Resp BP Pulse Ox 01/30/21 08:00 97.0 F 61 20 117/76 93 L 01/30/21 04:00 97.2 F 68 18 114/71 93 L 01/30/21 00:25 97.3 F 65 18 110/65 95 - Problem List & Annotations (1) Insomnia SNOMED Code(s): 218145915 Code(s): G47.00 - INSOMNIA, UNSPECIFIED Status: Acute Current Visit: Yes (2) Nasal dryness SNOMED Code(s): 92944435 Code(s): J34.89 - OTHER SPECIFIED DISORDERS OF NOSE AND NASAL SINUSES Status: Acute Current Visit: Yes (3) Acute respiratory disease due to COVID-19 virus SNOMED Code(s): 640043188, 689086180 Code(s): U07.1 - COVID-19; J06.9 - ACUTE UPPER RESPIRATORY INFECTION, UNSPECIFIED Status: Acute Current Visit: Yes - Problem List Review Problem List Initiated/Reviewed/Updated: Yes - My Orders Last 24 Hours: My Active Orders 01/30/21 09:49 Fluticasone Propionate [Flonase] 1 gm NASBOTH Q8H PRN 01/31/21 05:11 CBC WITH AUTO DIFF [HEME] AM CMP [COMPREHENSIVE METABOLIC PN,CMP] [CHEM] AM 02/01/21 05:11 CBC WITH AUTO DIFF [HEME] AM CMP [COMPREHENSIVE METABOLIC PN,CMP] [CHEM] AM 02/02/21 05:11 CBC WITH AUTO DIFF [HEME] AM CMP [COMPREHENSIVE METABOLIC PN,CMP] [CHEM] AM 02/03/21 05:11 CBC WITH AUTO DIFF [HEME] AM CMP [COMPREHENSIVE METABOLIC PN,CMP] [CHEM] AM 02/04/21 05:11 CBC WITH AUTO DIFF [HEME] AM CMP [COMPREHENSIVE METABOLIC PN,CMP] [CHEM] AM - Assessment Assessment:: 1. Acute respiratory failure secondary to COVID-19 pneumonia -We will continue with dexamethasone 6 mg per oral route -Continue with remdesivir 100 mg per IV route -For cough continue with Robitussin-DM as needed -For shortness of breath, continue with albuterol -Wean oxygen as appropriate 2. Nasal mucosa dryness -We will start saline nasal spray 0.6% every 6-8 hours 3. Past medical history of insomnia -Continue with trazodone and melatonin
[2021-01-30] MEDS ORDERED: Sodium Chloride 0.65% Nasal Spray 45 ML Bottle NASBOTH PRN (10:15)
[2021-01-30] MEDS: REMDESIVIR 100 MG in Sodium Chloride 0.9% 100 ML IV SCH (20:31)
[2021-01-30] MEDS: Enoxaparin 40 MG/0.4 ML Syringe SUBCUT SCH (20:31)
[2021-01-30] MEDS: traZODone 50 MG Tab PO PRN (20:32)
[2021-01-31 07:18] LABS: CARBON DIOXIDE,CO2 30.1 mmol/L (21.0-32.0); POTASSIUM,K 3.9 mmol/L (3.5-5.1)
[2021-01-31] MEDS: Dexamethasone 4 MG Tab PO SCH (08:55)
[2021-01-31] MEDS: Potassium Chloride 20 MEQ Tab.ER PO SCH (08:55)
[2021-01-31] MEDS: buPROPion 150 MG Tab.ER PO SCH (08:56)
[2021-01-31] MEDS: Escitalopram 10 MG Tab PO SCH (08:56)
--- NOTE | 2021-01-31 11:14 | PCM.PN ---
- General Info Date of Service: 01/31/21 Subjective Update: The patient is a 55-year-old female, on day 7 of service, who has a significant past medical history of insomnia, was admitted to the medical floor due to acute respiratory failure secondary to COVID-19 pneumonia. Upon interview with the patient today, she admits that her weakness has improved since yesterday. She is still complaining of a dry cough and has no sputum production as opposed to yesterday. She still has shortness of breath upon exer tion but it is not there when she is resting. She is currently saturating 93% on 6 L of oxygen. We will continue to wean as appropriate. The nasal dryness that she was suffering from yesterday has significantly decreased. She is eating and drinking her meals to completion. She denies chest pain, palpitations, nausea, vomiting, and any issues with urination and/or defecation. She has no other health concerns at this time. - Review of Systems General: Reports: Weakness, Fatigue. Denies: Fever HEENT: Denies: Headaches, Sore Throat Pulmonary: Reports: Shortness of Breath, Cough. Denies: Sputum Cardiovascular: Denies: Chest Pain, Palpitations Gastrointestinal: Denies: Abdominal Pain, Nausea, Vomiting Genitourinary: Denies: Dysuria - Patient Data Vitals - Most Recent: Last Vital Signs Temp 97.9 F 01/31/21 08:52 Pulse 63 01/31/21 08:52 Resp 18 01/31/21 08:52 BP 109/72 01/31/21 08:52 Pulse Ox 94 L 01/31/21 08:52 Weight - Most Recent: 210 lb I&O - Last 24 Hours: Intake & Output 01/30/21 01/31/21 01/31/21 22:59 06:59 14:59 Intake Total 740 600 Output Total 700 1200 Balance 40 -600 Lab Results Last 24 Hours: Laboratory Results - last 24 hr 01/31/21 01/31/21 Range/Units 06:04 06:04 WBC 6.26 (4.0-11.0) K/uL RBC 4.22 L (4.30-5.90) M/uL Hgb 12.2 (12.0-16.0) g/dL Hct 37.8 (36.0-46.0) % MCV 89.6 (80.0-98.0) fL MCH 28.9 (27.0-32.0) pg MCHC 32.3 (31.0-37.0) g/dL RDW Std Deviation 45.0 (28.0-62.0) fl RDW Coeff of Fransisca 14 (11.0-15.0) % Plt Count 411 H (150-400) K/uL MPV 9.50 (7.40-12.00) fL Neut % (Auto) 65.2 (48.0-80.0) % Lymph % (Auto) 17.3 (16.0-40.0) % [place] % (Auto) 16.0 H (0.0-15.0) % Eos % (Auto) 1.0 (0.0-7.0) % Baso % (Auto) 0.5 (0.0-1.5) % Neut # (Auto) 4.1 (1.4-5.7) K/uL Lymph # (Auto) 1.1 (0.6-2.4) K/uL [place] # (Auto) 1.0 H (0.0-0.8) K/uL Eos # (Auto) 0.1 (0.0-0.7) K/uL Baso # (Auto) 0.0 (0.0-0.1) K/uL Nucleated RBC % 0.9 /100WBC Nucleated RBCs # 0 K/uL Sodium 142 (136-145) mmol/L Potassium 3.9 (3.5-5.1) mmol/L Chloride 104 (98-107) mmol/L Carbon Dioxide 30.1 (21.0-32.0) mmol/L BUN 27 H (7.0-18.0) mg/dL Creatinine 1.0 (0.6-1.0) mg/dL Est Cr Clr Drug Dosing 66.31 mL/min Estimated GFR (MDRD) 56.9 ml/min Glucose 96 (74-106) mg/dL Calcium 8.8 (8.5-10.1) mg/dL Total Bilirubin 0.4 (0.2-1.0) mg/dL AST 65 H (15-37) IU/L ALT 113 H (14-63) IU/L Alkaline Phosphatase 48 (46-116) U/L Total Protein 6.6 (6.4-8.2) g/dL Albumin 2.4 L (3.4-5.0) g/dL Globulin 4.2 H (2.6-4.0) g/dL Albumin/Globulin Ratio 0.6 L (0.9-1.6) Med Orders - Current: Current Medications Acetaminophen (Acetaminophen 325 Mg Tab) 650 mg PO Q4H PRN PRN Reason: Pain/Fever Albuterol (Albuterol 8 Gm Inhaler) 0 gm INH Q2H PRN PRN Reason: Dyspnea Last Admin: 01/26/21 20:21 Dose: 2 puff Documented by: Bupropion HCl (Bupropion 150 Mg Tab.Er) 300 mg PO DAILY [facility] Last Admin: 01/31/21 08:56 Dose: 300 mg Documented by: Dexamethasone (Dexamethasone 4 Mg Tab) 6 mg PO DAILY [facility] Stop: 02/06/21 09:01 Last Admin: 01/31/21 08:55 Dose: 6 mg Documented by: Enoxaparin Sodium (Enoxaparin 40 Mg/0.4 Ml Syringe) 40 mg SUBCUT Q24H [facility] Last Admin: 01/30/21 20:31 Dose: 40 mg Documented by: Escitalopram Oxalate (Escitalopram 10 Mg Tab) 20 mg PO DAILY [facility] Last Admin: 01/31/21 08:56 Dose: 20 mg Documented by: Guaifenesin/Dextromethorphan (Guaifenesin/Dextromethorphan 100-10 Mg/5 Ml Soln 10 Ml Cup) 10 ml PO Q4H PRN PRN Reason: Cough Last Admin: 01/30/21 09:05 Dose: 10 ml Documented by: Remdesivir 100 mg/ Sodium (Chloride) 100 mls @ 100 mls/hr IV Q24H [facility] Stop: 01/31/21 20:59 Last Admin: 01/30/21 20:31 Dose: 100 mls/hr Documented by: Melatonin (Melatonin 3 Mg Tab) 6 mg PO BEDTIME PRN PRN Reason: Insomnia Last Admin: 01/26/21 21:54 Dose: 6 mg Documented by: Potassium Chloride (Potassium Chloride 20 Meq Tab.Er) 40 meq PO DAILY [facility] Last Admin: 01/31/21 08:55 Dose: 40 meq Documented by: Sodium Chloride (Sodium Chloride 0.9% 10 Ml Syringe) 10 ml FLUSH ASDIRECTED PRN PRN Reason: Keep Vein Open Last Admin: 01/25/21 19:13 Dose: 10 ml Documented by: Sodium Chloride (Sodium Chloride 0.9% 2.5 Ml Syringe) 2.5 ml FLUSH ASDIRECTED PRN PRN Reason: Keep Vein Open Last Admin: 01/25/21 19:13 Dose: 2.5 ml Documented by: Sodium Chloride (Sodium Chloride 0.65% Nasal [place] 45 Ml Bottle) 0 ml NASBOTH Q6H PRN PRN Reason: DRY NOSE Last Admin: 01/30/21 13:17 Dose: 1 spray Documented by: Trazodone HCl (Trazodone 50 Mg Tab) 50 mg PO BEDTIME PRN PRN Reason: Insomnia Last Admin: 01/30/21 20:32 Dose: 50 mg Documented by: Discontinued Medications Acetaminophen (Acetaminophen 500 Mg Tab) 1,000 mg PO ONETIME ONE Stop: 01/25/21 17:35 Last Admin: 01/25/21 17:48 Dose: 1,000 mg Documented by: Albuterol/Ipratropium (Albuterol/Ipratropium 3.0-0.5 Mg/3 Ml Neb Soln) 3 ml NEB Q6HRRT [facility] Last Admin: 01/26/21 12:19 Dose: 3 ml Documented by: Albuterol/Ipratropium (Albuterol/Ipratropium 3.0-0.5 Mg/3 Ml Neb Soln) 3 ml NEB Q4HRRT [facility] Last Admin: 01/29/21 13:02 Dose: Not Given Documented by: Dexamethasone (Dexamethasone 10 Mg/Ml Sdv) 10 mg IVPUSH ONETIME ONE Stop: 01/25/21 19:16 Last Admin: 01/25/21 19:53 Dose: 10 mg Documented by: Dexamethasone (Dexamethasone 4 Mg Tab) 4 mg PO DAILY [facility] Stop: 02/04/21 09:01 Last Admin: 01/27/21 09:20 Dose: 4 mg Documented by: Dexamethasone (Dexamethasone 4 Mg Tab) 2 mg PO ONETIME ONE Stop: 01/27/21 13:43 Last Admin: 01/27/21 15:08 Dose: 2 mg Documented by: Fluticasone Propionate (Fluticasone Propionate Nasal [place] 16 Gm Bottle) 0 gm NASBOTH BID [facility] Last Admin: 01/30/21 11:06 Dose: Not Given Documented by: Sodium Chloride (Normal Saline) 1,000 mls @ 999 mls/hr IV BOLUS ONE Stop: 01/25/21 18:33 Last Admin: 01/25/21 17:48 Dose: 999 mls/hr Documented by: Remdesivir 200 mg/ Sodium (Chloride) 250 mls @ 250 mls/hr IV ONETIME ONE Stop: 01/25/21 19:16 Last Admin: 01/25/21 19:58 Dose: Not Given Documented by: Dextrose/Sodium Chloride (Dextrose 5%-1/2 Ns) 1,000 mls @ 75 mls/hr IV ASDIRECTED [facility] Stop: 01/26/21 10:19 Last Admin: 01/26/21 04:34 Dose: 75 mls/hr Documented by: Remdesivir 100 mg/ Sodium (Chloride) 100 mls @ 100 mls/hr IV Q24H [facility] Stop: 01/29/21 18:44 Remdesivir 200 mg/ Sodium (Chloride) 250 mls @ 250 mls/hr IV ONETIME ONE Stop: 01/27/21 20:01 Last Admin: 01/27/21 20:50 Dose: 250 mls/hr Documented by: Iopamidol (Iopamidol 755 Mg/Ml 500 Ml Multipack Bottle) 100 ml IVPUSH ONETIME ONE Stop: 01/25/21 19:05 Last Admin: 01/25/21 19:05 Dose: 100 ml Documented by: Ketorolac Tromethamine (Ketorolac 30 Mg/Ml Sdv) 30 mg IVPUSH ONETIME ONE Stop: 01/25/21 17:35 Last Admin: 01/25/21 17:49 Dose: 30 mg Documented by: Potassium Chloride (Potassium Chloride 20 Meq Tab.Er) 40 meq PO ONETIME ONE Stop: 01/27/21 13:29 Last Admin: 01/27/21 15:08 Dose: 40 meq Documented by: - Exam General: Alert, Oriented, Cooperative HEENT: Mucous Membr. Moist/[place] Neck: Trachea Midline Lungs: Clear to Auscultation, Normal Respiratory Effort Cardiovascular: Regular Rate, Regular Rhythm GI/Abdominal Exam: Normal Bowel Sounds, Soft, Non-Tender - Patient Data Lab Results Last 24 hrs: Laboratory Results - last 24 hr 01/31/21 01/31/21 Range/Units 06:04 06:04 WBC 6.26 (4.0-11.0) K/uL RBC 4.22 L (4.30-5.90) M/uL Hgb 12.2 (12.0-16.0) g/dL Hct 37.8 (36.0-46.0) % MCV 89.6 (80.0-98.0) fL MCH 28.9 (27.0-32.0) pg MCHC 32.3 (31.0-37.0) g/dL RDW Std Deviation 45.0 (28.0-62.0) fl RDW Coeff of Fransisca 14 (11.0-15.0) % Plt Count 411 H (150-400) K/uL MPV 9.50 (7.40-12.00) fL Neut % (Auto) 65.2 (48.0-80.0) % Lymph % (Auto) 17.3 (16.0-40.0) % [place] % (Auto) 16.0 H (0.0-15.0) % Eos % (Auto) 1.0 (0.0-7.0) % Baso % (Auto) 0.5 (0.0-1.5) % Neut # (Auto) 4.1 (1.4-5.7) K/uL Lymph # (Auto) 1.1 (0.6-2.4) K/uL [place] # (Auto) 1.0 H (0.0-0.8) K/uL Eos # (Auto) 0.1 (0.0-0.7) K/uL Baso # (Auto) 0.0 (0.0-0.1) K/uL Nucleated RBC % 0.9 /100WBC Nucleated RBCs # 0 K/uL Sodium 142 (136-145) mmol/L Potassium 3.9 (3.5-5.1) mmol/L Chloride 104 (98-107) mmol/L Carbon Dioxide 30.1 (21.0-32.0) mmol/L BUN 27 H (7.0-18.0) mg/dL Creatinine 1.0 (0.6-1.0) mg/dL Est Cr Clr Drug Dosing 66.31 mL/min Estimated GFR (MDRD) 56.9 ml/min Glucose 96 (74-106) mg/dL Calcium 8.8 (8.5-10.1) mg/dL Total Bilirubin 0.4 (0.2-1.0) mg/dL AST 65 H (15-37) IU/L ALT 113 H (14-63) IU/L Alkaline Phosphatase 48 (46-116) U/L Total Protein 6.6 (6.4-8.2) g/dL Albumin 2.4 L (3.4-5.0) g/dL Globulin 4.2 H (2.6-4.0) g/dL Albumin/Globulin Ratio 0.6 L (0.9-1.6) Result Diagrams: 01/31/21 06:04 01/31/21 06:04 Sepsis Event Note - Evaluation Sepsis Screening Result: No Definite Risk - Focused Exam Vital Signs: Vital Signs Temp Pulse Resp BP Pulse Ox 01/31/21 08:52 97.9 F 63 18 109/72 94 L 01/31/21 04:00 97.1 F 57 L 18 116/72 93 L 01/31/21 00:06 96.9 F 64 18 119/68 95 - Problem List & Annotations (1) Insomnia SNOMED Code(s): 189176747 Code(s): G47.00 - INSOMNIA, UNSPECIFIED Status: Acute Current Visit: Yes (2) Nasal dryness SNOMED Code(s): 43376343 Code(s): J34.89 - OTHER SPECIFIED DISORDERS OF NOSE AND NASAL SINUSES Status: Acute Current Visit: Yes (3) Acute respiratory disease due to COVID-19 virus SNOMED Code(s): 434455041, 466221708 Code(s): U07.1 - COVID-19; J06.9 - ACUTE UPPER RESPIRATORY INFECTION, UNSPECIFIED Status: Acute Current Visit: Yes - Problem List Review Problem List Initiated/Reviewed/Updated: Yes - My Orders Last 24 Hours: My Active Orders 01/30/21 10:15 Sodium Chloride 0.65% [[place] Nasal [place]] 0 ml NASBOTH Q6H PRN 02/01/21 05:11 CBC WITH AUTO DIFF [HEME] AM CMP [COMPREHENSIVE METABOLIC PN,CMP] [CHEM] AM 02/02/21 05:11 CBC WITH AUTO DIFF [HEME] AM CMP [COMPREHENSIVE METABOLIC PN,CMP] [CHEM] AM 02/03/21 05:11 CBC WITH AUTO DIFF [HEME] AM CMP [COMPREHENSIVE METABOLIC PN,CMP] [CHEM] AM 02/04/21 05:11 CBC WITH AUTO DIFF [HEME] AM CMP [COMPREHENSIVE METABOLIC PN,CMP] [CHEM] AM - Assessment Assessment:: 1. Acute respiratory failure secondary to COVID-19 pneumonia -Continue with dexamethasone 6 mg per oral route -Continue with remdesivir 100 mg per IV route -For cough continue with Robitussin-DM as needed -For shortness of breath, continue with albuterol -Wean oxygen as appropriate, currently saturating 93% on 6 L 2. Past medical history -Continue with trazodone, melatonin, Lexapro, and bupropion
[2021-01-31] MEDS: REMDESIVIR 100 MG in Sodium Chloride 0.9% 100 ML IV SCH (20:38)
[2021-01-31] MEDS: Enoxaparin 40 MG/0.4 ML Syringe SUBCUT SCH (20:39)
[2021-01-31] MEDS: traZODone 50 MG Tab PO PRN (20:40)
[2021-01-31] MEDS: guaiFENesin/Dextromethorphan 100-10 MG/5 ML Soln 10 ML Cup PO PRN (20:40)
[2021-02-01 06:48] LABS: BLOOD UREA NITROGEN,BUN 24 mg/dL (7.0-18.0); CHLORIDE,CL 106 mmol/L (98-107); GLUCOSE RANDOM 114 mg/dL (74-106); POTASSIUM,K 4.5 mmol/L (3.5-5.1); SODIUM,NA 144 mmol/L (136-145)
[2021-02-01] MEDS: Dexamethasone 4 MG Tab PO SCH (09:55)
[2021-02-01] MEDS: Escitalopram 10 MG Tab PO SCH (09:56)
[2021-02-01] MEDS: Potassium Chloride 20 MEQ Tab.ER PO SCH (09:56)
[2021-02-01] MEDS: buPROPion 150 MG Tab.ER PO SCH (09:57)
--- NOTE | 2021-02-01 13:31 | PCM.PN ---
- General Info Date of Service: 02/01/21 Subjective Update: The patient is a 55-year-old female, on day 8 of service, who has a significant past medical history of insomnia, was admitted to the medical floor due to acute respiratory failure secondary to COVID-19 pneumonia. Upon interview with the patient today she admits that her shortness of breath has significantly decreased even though still there upon exertion. Her cough has also decreased and is nonproductive. She admits that her nasal dryness and w eakness are improving as well. She is saturating 94% on 6 L and the hope is in the next couple days she will be able to be weaned down to the point where she can be discharged on a home oxygen apparatus via [employer]. She denies chest pain, palpitations, nausea, vomiting, fever, and any issues with urination and/or defecation. She has a healthy appetite and is eating and drinking her meals to completion. She has no other health concerns at this time. - Review of Systems General: Reports: Weakness, Fatigue. Denies: Fever HEENT: Denies: Headaches, Sore Throat Pulmonary: Reports: Shortness of Breath, Cough. Denies: Sputum Cardiovascular: Denies: Chest Pain, Palpitations Gastrointestinal: Denies: Abdominal Pain, Nausea, Vomiting Genitourinary: Denies: Dysuria - Patient Data Vitals - Most Recent: Last Vital Signs Temp 97.3 F 02/01/21 11:47 Pulse 74 02/01/21 11:47 Resp 18 02/01/21 11:47 BP 103/67 02/01/21 11:47 Pulse Ox 92 L 02/01/21 11:47 Weight - Most Recent: 210 lb I&O - Last 24 Hours: Intake & Output 01/31/21 02/01/21 02/01/21 22:59 06:59 14:59 Intake Total 1050 200 418 Output Total 800 400 Balance 250 -200 418 Lab Results Last 24 Hours: Laboratory Results - last 24 hr 02/01/21 02/01/21 Range/Units 05:44 05:44 WBC 7.51 (4.0-11.0) K/uL RBC 4.15 L (4.30-5.90) M/uL Hgb 12.1 (12.0-16.0) g/dL Hct 37.1 (36.0-46.0) % MCV 89.4 (80.0-98.0) fL MCH 29.2 (27.0-32.0) pg MCHC 32.6 (31.0-37.0) g/dL RDW Std Deviation 43.5 (28.0-62.0) fl RDW Coeff of Fransisca 13 (11.0-15.0) % Plt Count 402 H (150-400) K/uL MPV 9.50 (7.40-12.00) fL Add Manual Diff YES Neutrophils % (Manual) 68 (48.0-80.0) % Band Neutrophils % 2 % Lymphocytes % (Manual) 17 (16.0-40.0) % Monocytes % (Manual) 11 (0.0-15.0) % Eosinophils % (Manual) 2 (0.0-7.0) % Nucleated RBC % 0.4 /100WBC Absolute Seg Neuts 5.1 (1.4-5.7) Band Neutrophils # 0.2 Lymphocytes # (Manual) 1.3 (0.6-2.4) Monocytes # (Manual) 0.8 (0.0-0.8) Eosinophils # (Manual) 0.2 (0.0-0.7) Nucleated RBCs # 0 K/uL Sodium 144 (136-145) mmol/L Potassium 4.5 (3.5-5.1) mmol/L Chloride 106 (98-107) mmol/L Carbon Dioxide 33.0 H (21.0-32.0) mmol/L BUN 24 H (7.0-18.0) mg/dL Creatinine 0.9 (0.6-1.0) mg/dL Est Cr Clr Drug Dosing 73.68 mL/min Estimated GFR (MDRD) > 60.0 ml/min Glucose 114 H (74-106) mg/dL Calcium 8.7 (8.5-10.1) mg/dL Total Bilirubin 0.4 (0.2-1.0) mg/dL AST 39 H (15-37) IU/L ALT 102 H (14-63) IU/L Alkaline Phosphatase 52 (46-116) U/L Total Protein 6.7 (6.4-8.2) g/dL Albumin 2.5 L (3.4-5.0) g/dL Globulin 4.2 H (2.6-4.0) g/dL Albumin/Globulin Ratio 0.6 L (0.9-1.6) Med Orders - Current: Current Medications Acetaminophen (Acetaminophen 325 Mg Tab) 650 mg PO Q4H PRN PRN Reason: Pain/Fever Albuterol (Albuterol 8 Gm Inhaler) 0 gm INH Q2H PRN PRN Reason: Dyspnea Last Admin: 01/26/21 20:21 Dose: 2 puff Documented by: Bupropion HCl (Bupropion 150 Mg Tab.Er) 300 mg PO DAILY [facility] Last Admin: 02/01/21 09:57 Dose: 300 mg Documented by: Dexamethasone (Dexamethasone 4 Mg Tab) 6 mg PO DAILY [facility] Stop: 02/06/21 09:01 Last Admin: 02/01/21 09:55 Dose: 6 mg Documented by: Enoxaparin Sodium (Enoxaparin 40 Mg/0.4 Ml Syringe) 40 mg SUBCUT Q24H [facility] Last Admin: 01/31/21 20:39 Dose: 40 mg Documented by: Escitalopram Oxalate (Escitalopram 10 Mg Tab) 20 mg PO DAILY [facility] Last Admin: 02/01/21 09:56 Dose: 20 mg Documented by: Guaifenesin/Dextromethorphan (Guaifenesin/Dextromethorphan 100-10 Mg/5 Ml Soln 10 Ml Cup) 10 ml PO Q4H PRN PRN Reason: Cough Last Admin: 01/31/21 20:40 Dose: 10 ml Documented by: Melatonin (Melatonin 3 Mg Tab) 6 mg PO BEDTIME PRN PRN Reason: Insomnia Last Admin: 01/26/21 21:54 Dose: 6 mg Documented by: Sodium Chloride (Sodium Chloride 0.9% 10 Ml Syringe) 10 ml FLUSH ASDIRECTED PRN PRN Reason: Keep Vein Open Last Admin: 01/25/21 19:13 Dose: 10 ml Documented by: Sodium Chloride (Sodium Chloride 0.9% 2.5 Ml Syringe) 2.5 ml FLUSH ASDIRECTED PRN PRN Reason: Keep Vein Open Last Admin: 01/25/21 19:13 Dose: 2.5 ml Documented by: Sodium Chloride (Sodium Chloride 0.65% Nasal [place] 45 Ml Bottle) 0 ml NASBOTH Q6H PRN PRN Reason: DRY NOSE Last Admin: 01/30/21 13:17 Dose: 1 spray Documented by: Trazodone HCl (Trazodone 50 Mg Tab) 50 mg PO BEDTIME PRN PRN Reason: Insomnia Last Admin: 01/31/21 20:40 Dose: 50 mg Documented by: Discontinued Medications Acetaminophen (Acetaminophen 500 Mg Tab) 1,000 mg PO ONETIME ONE Stop: 01/25/21 17:35 Last Admin: 01/25/21 17:48 Dose: 1,000 mg Documented by: Albuterol/Ipratropium (Albuterol/Ipratropium 3.0-0.5 Mg/3 Ml Neb Soln) 3 ml NEB Q6HRRT [facility] Last Admin: 01/26/21 12:19 Dose: 3 ml Documented by: Albuterol/Ipratropium (Albuterol/Ipratropium 3.0-0.5 Mg/3 Ml Neb Soln) 3 ml NEB Q4HRRT [facility] Last Admin: 01/29/21 13:02 Dose: Not Given Documented by: Dexamethasone (Dexamethasone 10 Mg/Ml Sdv) 10 mg IVPUSH ONETIME ONE Stop: 01/25/21 19:16 Last Admin: 01/25/21 19:53 Dose: 10 mg Documented by: Dexamethasone (Dexamethasone 4 Mg Tab) 4 mg PO DAILY [facility] Stop: 02/04/21 09:01 Last Admin: 01/27/21 09:20 Dose: 4 mg Documented by: Dexamethasone (Dexamethasone 4 Mg Tab) 2 mg PO ONETIME ONE Stop: 01/27/21 13:43 Last Admin: 01/27/21 15:08 Dose: 2 mg Documented by: Fluticasone Propionate (Fluticasone Propionate Nasal [place] 16 Gm Bottle) 0 gm NASBOTH BID [facility] Last Admin: 01/30/21 11:06 Dose: Not Given Documented by: Sodium Chloride (Normal Saline) 1,000 mls @ 999 mls/hr IV BOLUS ONE Stop: 01/25/21 18:33 Last Admin: 01/25/21 17:48 Dose: 999 mls/hr Documented by: Remdesivir 200 mg/ Sodium (Chloride) 250 mls @ 250 mls/hr IV ONETIME ONE Stop: 01/25/21 19:16 Last Admin: 01/25/21 19:58 Dose: Not Given Documented by: Dextrose/Sodium Chloride (Dextrose 5%-1/2 Ns) 1,000 mls @ 75 mls/hr IV ASDIRECTED [facility] Stop: 01/26/21 10:19 Last Admin: 01/26/21 04:34 Dose: 75 mls/hr Documented by: Remdesivir 100 mg/ Sodium (Chloride) 100 mls @ 100 mls/hr IV Q24H [facility] Stop: 01/29/21 18:44 Remdesivir 200 mg/ Sodium (Chloride) 250 mls @ 250 mls/hr IV ONETIME ONE Stop: 01/27/21 20:01 Last Admin: 01/27/21 20:50 Dose: 250 mls/hr Documented by: Remdesivir 100 mg/ Sodium (Chloride) 100 mls @ 100 mls/hr IV Q24H [facility] Stop: 01/31/21 20:59 Last Admin: 01/31/21 20:38 Dose: 100 mls/hr Documented by: Iopamidol (Iopamidol 755 Mg/Ml 500 Ml Multipack Bottle) 100 ml IVPUSH ONETIME ONE Stop: 01/25/21 19:05 Last Admin: 01/25/21 19:05 Dose: 100 ml Documented by: Ketorolac Tromethamine (Ketorolac 30 Mg/Ml Sdv) 30 mg IVPUSH ONETIME ONE Stop: 01/25/21 17:35 Last Admin: 01/25/21 17:49 Dose: 30 mg Documented by: Potassium Chloride (Potassium Chloride 20 Meq Tab.Er) 40 meq PO DAILY [facility] Last Admin: 02/01/21 09:56 Dose: Not Given Documented by: Potassium Chloride (Potassium Chloride 20 Meq Tab.Er) 40 meq PO ONETIME ONE Stop: 01/27/21 13:29 Last Admin: 01/27/21 15:08 Dose: 40 meq Documented by: - Exam General: Alert, Oriented, Cooperative HEENT: Mucous Membr. Moist/[place] Neck: Trachea Midline Lungs: Clear to Auscultation, Normal Respiratory Effort Cardiovascular: Regular Rate, Regular Rhythm GI/Abdominal Exam: Normal Bowel Sounds, Soft, Non-Tender - Patient Data Lab Results Last 24 hrs: Laboratory Results - last 24 hr 02/01/21 02/01/21 Range/Units 05:44 05:44 WBC 7.51 (4.0-11.0) K/uL RBC 4.15 L (4.30-5.90) M/uL Hgb 12.1 (12.0-16.0) g/dL Hct 37.1 (36.0-46.0) % MCV 89.4 (80.0-98.0) fL MCH 29.2 (27.0-32.0) pg MCHC 32.6 (31.0-37.0) g/dL RDW Std Deviation 43.5 (28.0-62.0) fl RDW Coeff of Fransisca 13 (11.0-15.0) % Plt Count 402 H (150-400) K/uL MPV 9.50 (7.40-12.00) fL Add Manual Diff YES Neutrophils % (Manual) 68 (48.0-80.0) % Band Neutrophils % 2 % Lymphocytes % (Manual) 17 (16.0-40.0) % Monocytes % (Manual) 11 (0.0-15.0) % Eosinophils % (Manual) 2 (0.0-7.0) % Nucleated RBC % 0.4 /100WBC Absolute Seg Neuts 5.1 (1.4-5.7) Band Neutrophils # 0.2 Lymphocytes # (Manual) 1.3 (0.6-2.4) Monocytes # (Manual) 0.8 (0.0-0.8) Eosinophils # (Manual) 0.2 (0.0-0.7) Nucleated RBCs # 0 K/uL Sodium 144 (136-145) mmol/L Potassium 4.5 (3.5-5.1) mmol/L Chloride 106 (98-107) mmol/L Carbon Dioxide 33.0 H (21.0-32.0) mmol/L BUN 24 H (7.0-18.0) mg/dL Creatinine 0.9 (0.6-1.0) mg/dL Est Cr Clr Drug Dosing 73.68 mL/min Estimated GFR (MDRD) > 60.0 ml/min Glucose 114 H (74-106) mg/dL Calcium 8.7 (8.5-10.1) mg/dL Total Bilirubin 0.4 (0.2-1.0) mg/dL AST 39 H (15-37) IU/L ALT 102 H (14-63) IU/L Alkaline Phosphatase 52 (46-116) U/L Total Protein 6.7 (6.4-8.2) g/dL Albumin 2.5 L (3.4-5.0) g/dL Globulin 4.2 H (2.6-4.0) g/dL Albumin/Globulin Ratio 0.6 L (0.9-1.6) Result Diagrams: 02/01/21 05:44 02/01/21 05:44 Sepsis Event Note - Evaluation Sepsis Screening Result: No Definite Risk - Focused Exam Vital Signs: Vital Signs Temp Pulse Resp BP Pulse Ox Pulse Ox 02/01/21 11:47 97.3 F 74 18 103/67 92 L 02/01/21 08:38 98 F 60 18 122/76 93 L 02/01/21 07:00 92 L 02/01/21 03:06 96.9 F 57 L 18 120/73 94 L - Problem List & Annotations (1) Insomnia SNOMED Code(s): 125878409 Code(s): G47.00 - INSOMNIA, UNSPECIFIED Status: Acute Current Visit: Yes (2) Nasal dryness SNOMED Code(s): 16447089 Code(s): J34.89 - OTHER SPECIFIED DISORDERS OF NOSE AND NASAL SINUSES Status: Acute Current Visit: Yes (3) Acute respiratory disease due to COVID-19 virus SNOMED Code(s): 605621515, 440339249 Code(s): U07.1 - COVID-19; J06.9 - ACUTE UPPER RESPIRATORY INFECTION, UNSPECIFIED Status: Acute Current Visit: Yes - Problem List Review Problem List Initiated/Reviewed/Updated: Yes - My Orders Last 24 Hours: My Active Orders 02/01/21 09:42 Communication Order [RC] PER UNIT ROUTINE 02/02/21 05:11 CBC WITH AUTO DIFF [HEME] AM CMP [COMPREHENSIVE METABOLIC PN,CMP] [CHEM] AM 02/03/21 05:11 CBC WITH AUTO DIFF [HEME] AM CMP [COMPREHENSIVE METABOLIC PN,CMP] [CHEM] AM 02/04/21 05:11 CBC WITH AUTO DIFF [HEME] AM CMP [COMPREHENSIVE METABOLIC PN,CMP] [CHEM] AM - Assessment Assessment:: 1. Acute respiratory failure secondary to COVID-19 pneumonia -Continue dexamethasone -Continue remdesivir -Continue Robitussin-DM as needed -Continue albuterol treatments -Wean oxygen as appropriate, currently saturating 94% on 6 L, continues to require less oxygen day by day and should be discharged in the next couple of days 2. Past medical history -Continue with trazodone, melatonin, Lexapro, and bupropion
[2021-02-01] MEDS: Enoxaparin 40 MG/0.4 ML Syringe SUBCUT SCH (20:27)
[2021-02-01] MEDS: traZODone 50 MG Tab PO PRN (20:28)
[2021-02-02 07:59] VITALS: BP 114/71; PULSE 64
[2021-02-02 08:21] LABS: BLOOD UREA NITROGEN,BUN 23 mg/dL (7.0-18.0); CARBON DIOXIDE,CO2 31.4 mmol/L (21.0-32.0); CHLORIDE,CL 106 mmol/L (98-107); GLUCOSE RANDOM 104 mg/dL (74-106); POTASSIUM,K 4.5 mmol/L (3.5-5.1); SODIUM,NA 142 mmol/L (136-145)
[2021-02-02] MEDS: Dexamethasone 4 MG Tab PO SCH (09:56)
[2021-02-02] MEDS: Escitalopram 10 MG Tab PO SCH (09:56)
[2021-02-02] MEDS: buPROPion 150 MG Tab.ER PO SCH (09:56)
--- NOTE | 2021-02-02 12:16 | PCM.DCSUM1 ---
<Bailey Victoria - Last Filed: 02/02/21 12:18> Discharge Summary - Hospital Course Free Text/Narrative:: The patient is a 55-year-old female, on day 9 of service, who has a significant past medical history of insomnia, was admitted to the medical floor due to acute respiratory failure secondary to COVID-19 pneumonia. During the patient's hospital stay for her COVID-19 infection she was treated with different protocol medications including dexamethasone per oral route, remdesivir per IV route, for cough she was given Robitussin-DM, and for shortness of breath she was given albuterol treatments. Once the patient is discharged today, she will be sent home with prescriptions for an additional day of dexamethasone, Robitussin for cough, and will also be given an inhaler of albuterol to be used every 6 hours, 1 to 2 puffs as needed. The patient also had a walking trial done today which deciphered that she will need 2 L of oxygen to be used during ambulation. Upon rest she will not require oxygen. Embarr Downs is to visit with the patient today in order to provide her with the oxygen apparatus. The patient has been advised to follow-up with her PCP in 1 to 2 weeks time. She is also been counseled to be compliant with her medication and take them at scheduled times. Lastly she has been educated to return to the hospital if she has increasing shortness of breath, respiratory difficulty, chest pain, and/or palpitations. The patient is now stable and can be discharged home safely. - Discharge Data Discharge Date: 02/02/21 Discharge Disposition: Home, Self-Care 01 Condition: Good - Referral to Home Health Primary Care Physician: Gretel Prater NP - Discharge Diagnosis/Problem(s) (1) Insomnia SNOMED Code(s): 262139153 ICD Code: G47.00 - INSOMNIA, UNSPECIFIED Status: Acute Priority: High (2) Nasal dryness SNOMED Code(s): 14880559 ICD Code: J34.89 - OTHER SPECIFIED DISORDERS OF NOSE AND NASAL SINUSES Status: Acute (3) Acute respiratory disease due to COVID-19 virus SNOMED Code(s): 539188436, 712332816 ICD Code: U07.1 - COVID-19; J06.9 - ACUTE UPPER RESPIRATORY INFECTION, UNSPECIFIED Status: Acute - Patient Summary/Data Consults: Consultations 11/26/21 20:59 Respiratory Care Assess and Treatment [CONS] Routine 01/26/21 13:45 OT Evaluation and Treatment [CONS] Routine PT Evaluation and Treatment [CONS] Routine - Patient Instructions Diet: Regular Diet as Tolerated Activity: As Tolerated Showering/Bathing: May Shower Other/Special Instructions: -Return to the hospital if you have shortness of breath, chest pain, respiratory difficulty. -Take your medication at scheduled times. -Follow up with your PCP - Discharge Plan Prescriptions/Med Rec: Albuterol Sulfate [Albuterol Sulfate Hfa] 8.5 gm IH Q6H PRN #1 hfa.aer.ad PRN Reason: Shortness Of Breath dexAMETHasone [Decadron] 6 mg PO DAILY 1 Days #2 tablet Dextromethorphan/guaiFENesin [Robitussin DM] 10 ml PO Q4H PRN #120 ml PRN Reason: Cough Home Medications: Home Meds Escitalopram [Lexapro] 20 mg PO DAILY 01/10/14 [History] buPROPion [Wellbutrin XL] 300 mg PO DAILY 01/10/14 [History] Butalb/Acetaminophen/Caffeine [Utsooe-Gmjkwijh-Hcdu 50-300-40] 1 each PO Q6H PRN 01/25/21 [History] ClonazePAM [KlonoPIN] 0.5 mg PO BEDTIME PRN 01/28/21 [History] Albuterol Sulfate [Albuterol Sulfate Hfa] 8.5 gm IH Q6H PRN #1 hfa.aer.ad 02/02/21 [Rx] Dextromethorphan/guaiFENesin [Robitussin DM] 10 ml PO Q4H PRN #120 ml 02/02/21 [Rx] dexAMETHasone [Decadron] 6 mg PO DAILY 1 Days #2 tablet 02/02/21 [Rx] dexAMETHasone [Dexamethasone] 6 mg PO DAILY 1 Days #2 tablet 02/02/21 [Rx] Oxygen Therapy Mode: Nasal Cannula Oxygen Flow Rate (L/min): 2 (Use 2 liters of oxygen during exertion) Patient Handouts: Hypoxia, COVID-19 Frequently Asked Questions, Chlorpheniramine; Dextromethorphan Oral Solution, COVID-19 Vaccine Information, Home Oxygen Use, Adult, COVID-19: How to Protect Yourself and Others - CDC, COVID-19: Quarantine vs. Isolation - CDC (02/16/2020), Dexamethasone tablets Referrals: Gretel Prater, DIPLOMATIC INTERPRETER/TRANSLATOR [Primary Care Provider] - 02/18/21 1:00 pm - Discharge Summary/Plan Comment DC Time >30 min.: Yes Total # of Minutes for Discharge Time: 35 minutes - Review of Systems General: Denies: Fever, Weakness, Fatigue HEENT: Denies: Headaches, Sore Throat Pulmonary: Reports: Shortness of Breath. Denies: Cough Cardiovascular: Denies: Chest Pain, Palpitations Gastrointestinal: Denies: Abdominal Pain Genitourinary: Denies: Dysuria, Frequency - Patient Data Vitals - Most Recent: Last Vital Signs Temp 97.4 F 02/02/21 07:58 Pulse 64 02/02/21 07:58 Resp 19 02/02/21 07:58 BP 114/71 02/02/21 07:58 Pulse Ox 94 L 02/02/21 07:58 Weight - Most Recent: 210 lb I&O - Last 24 hours: Intake & Output 02/01/21 02/02/21 02/02/21 22:59 06:59 14:59 Intake Total 1250 1150 Output Total 1500 700 Balance -250 450 Lab Results - Last 24 hrs: Laboratory Results - last 24 hr 02/02/21 02/02/21 Range/Units 07:01 07:01 WBC 8.26 (4.0-11.0) K/uL RBC 4.22 L (4.30-5.90) M/uL Hgb 12.3 (12.0-16.0) g/dL Hct 37.9 (36.0-46.0) % MCV 89.8 (80.0-98.0) fL MCH 29.1 (27.0-32.0) pg MCHC 32.5 (31.0-37.0) g/dL RDW Std Deviation 44.0 (28.0-62.0) fl RDW Coeff of Fransisca 13 (11.0-15.0) % Plt Count 419 H (150-400) K/uL MPV 9.50 (7.40-12.00) fL Add Manual Diff YES Neutrophils % (Manual) 57 (48.0-80.0) % Band Neutrophils % 7 % Lymphocytes % (Manual) 21 (16.0-40.0) % Monocytes % (Manual) 9 (0.0-15.0) % Metamyelocytes % 3 % Myelocytes % 3 % Nucleated RBC % 0.0 /100WBC Absolute Seg Neuts 4.7 (1.4-5.7) Band Neutrophils # 0.6 Lymphocytes # (Manual) 1.7 (0.6-2.4) Monocytes # (Manual) 0.7 (0.0-0.8) Absolute Metamyelocyte 0.2 Absolute Myelocytes 0.2 Nucleated RBCs # 0 K/uL Sodium 142 (136-145) mmol/L Potassium 4.5 (3.5-5.1) mmol/L Chloride 106 (98-107) mmol/L Carbon Dioxide 31.4 (21.0-32.0) mmol/L BUN 23 H (7.0-18.0) mg/dL Creatinine 0.9 (0.6-1.0) mg/dL Est Cr Clr Drug Dosing 73.68 mL/min Estimated GFR (MDRD) > 60.0 ml/min Glucose 104 (74-106) mg/dL Calcium 8.5 (8.5-10.1) mg/dL Total Bilirubin 0.4 (0.2-1.0) mg/dL AST 42 H (15-37) IU/L ALT 116 H (14-63) IU/L Alkaline Phosphatase 52 (46-116) U/L Total Protein 6.5 (6.4-8.2) g/dL Albumin 2.4 L (3.4-5.0) g/dL Globulin 4.1 H (2.6-4.0) g/dL Albumin/Globulin Ratio 0.6 L (0.9-1.6) Med Orders - Current: Current Medications Acetaminophen (Acetaminophen 325 Mg Tab) 650 mg PO Q4H PRN PRN Reason: Pain/Fever Albuterol (Albuterol 8 Gm Inhaler) 0 gm INH Q2H PRN PRN Reason: Dyspnea Last Admin: 01/26/21 20:21 Dose: 2 puff Documented by: Bupropion HCl (Bupropion 150 Mg Tab.Er) 300 mg PO DAILY JAY Last Admin: 02/02/21 09:56 Dose: 300 mg Documented by: Dexamethasone (Dexamethasone 4 Mg Tab) 6 mg PO DAILY [facility] Stop: 02/06/21 09:01 Last Admin: 02/02/21 09:56 Dose: 6 mg Documented by: Enoxaparin Sodium (Enoxaparin 40 Mg/0.4 Ml Syringe) 40 mg SUBCUT Q24H [facility] Last Admin: 02/01/21 20:27 Dose: 40 mg Documented by: Escitalopram Oxalate (Escitalopram 10 Mg Tab) 20 mg PO DAILY [facility] Last Admin: 02/02/21 09:56 Dose: 20 mg Documented by: Guaifenesin/Dextromethorphan (Guaifenesin/Dextromethorphan 100-10 Mg/5 Ml Soln 10 Ml Cup) 10 ml PO Q4H PRN PRN Reason: Cough Last Admin: 01/31/21 20:40 Dose: 10 ml Documented by: Melatonin (Melatonin 3 Mg Tab) 6 mg PO BEDTIME PRN PRN Reason: Insomnia Last Admin: 01/26/21 21:54 Dose: 6 mg Documented by: Sodium Chloride (Sodium Chloride 0.9% 10 Ml Syringe) 10 ml FLUSH ASDIRECTED PRN PRN Reason: Keep Vein Open Last Admin: 01/25/21 19:13 Dose: 10 ml Documented by: Sodium Chloride (Sodium Chloride 0.9% 2.5 Ml Syringe) 2.5 ml FLUSH ASDIRECTED PRN PRN Reason: Keep Vein Open Last Admin: 01/25/21 19:13 Dose: 2.5 ml Documented by: Sodium Chloride (Sodium Chloride 0.65% Nasal [place] 45 Ml Bottle) 0 ml NASBOTH Q6H PRN PRN Reason: DRY NOSE Last Admin: 01/30/21 13:17 Dose: 1 spray Documented by: Trazodone HCl (Trazodone 50 Mg Tab) 50 mg PO BEDTIME PRN PRN Reason: Insomnia Last Admin: 02/01/21 20:28 Dose: 50 mg Documented by: Discontinued Medications Acetaminophen (Acetaminophen 500 Mg Tab) 1,000 mg PO ONETIME ONE Stop: 01/25/21 17:35 Last Admin: 01/25/21 17:48 Dose: 1,000 mg Documented by: Albuterol/Ipratropium (Albuterol/Ipratropium 3.0-0.5 Mg/3 Ml Neb Soln) 3 ml NEB Q6HRRT [facility] Last Admin: 01/26/21 12:19 Dose: 3 ml Documented by: Albuterol/Ipratropium (Albuterol/Ipratropium 3.0-0.5 Mg/3 Ml Neb Soln) 3 ml NEB Q4HRRT [facility] Last Admin: 01/29/21 13:02 Dose: Not Given Documented by: Dexamethasone (Dexamethasone 10 Mg/Ml Sdv) 10 mg IVPUSH ONETIME ONE Stop: 01/25/21 19:16 Last Admin: 01/25/21 19:53 Dose: 10 mg Documented by: Dexamethasone (Dexamethasone 4 Mg Tab) 4 mg PO DAILY [facility] Stop: 02/04/21 09:01 Last Admin: 01/27/21 09:20 Dose: 4 mg Documented by: Dexamethasone (Dexamethasone 4 Mg Tab) 2 mg PO ONETIME ONE Stop: 01/27/21 13:43 Last Admin: 01/27/21 15:08 Dose: 2 mg Documented by: Fluticasone Propionate (Fluticasone Propionate Nasal [place] 16 Gm Bottle) 0 gm NASBOTH BID [facility] Last Admin: 01/30/21 11:06 Dose: Not Given Documented by: Sodium Chloride (Normal Saline) 1,000 mls @ 999 mls/hr IV BOLUS ONE Stop: 01/25/21 18:33 Last Admin: 01/25/21 17:48 Dose: 999 mls/hr Documented by: Remdesivir 200 mg/ Sodium (Chloride) 250 mls @ 250 mls/hr IV ONETIME ONE Stop: 01/25/21 19:16 Last Admin: 01/25/21 19:58 Dose: Not Given Documented by: Dextrose/Sodium Chloride (Dextrose 5%-1/2 Ns) 1,000 mls @ 75 mls/hr IV ASDIRECTED [facility] Stop: 01/26/21 10:19 Last Admin: 01/26/21 04:34 Dose: 75 mls/hr Documented by: Remdesivir 100 mg/ Sodium (Chloride) 100 mls @ 100 mls/hr IV Q24H [facility] Stop: 01/29/21 18:44 Remdesivir 200 mg/ Sodium (Chloride) 250 mls @ 250 mls/hr IV ONETIME ONE Stop: 01/27/21 20:01 Last Admin: 01/27/21 20:50 Dose: 250 mls/hr Documented by: Remdesivir 100 mg/ Sodium (Chloride) 100 mls @ 100 mls/hr IV Q24H [facility] Stop: 01/31/21 20:59 Last Admin: 01/31/21 20:38 Dose: 100 mls/hr Documented by: Iopamidol (Iopamidol 755 Mg/Ml 500 Ml Multipack Bottle) 100 ml IVPUSH ONETIME ONE Stop: 01/25/21 19:05 Last Admin: 01/25/21 19:05 Dose: 100 ml Documented by: Ketorolac Tromethamine (Ketorolac 30 Mg/Ml Sdv) 30 mg IVPUSH ONETIME ONE Stop: 01/25/21 17:35 Last Admin: 01/25/21 17:49 Dose: 30 mg Documented by: Potassium Chloride (Potassium Chloride 20 Meq Tab.Er) 40 meq PO DAILY [facility] Last Admin: 02/01/21 09:56 Dose: Not Given Documented by: Potassium Chloride (Potassium Chloride 20 Meq Tab.Er) 40 meq PO ONETIME ONE Stop: 01/27/21 13:29 Last Admin: 01/27/21 15:08 Dose: 40 meq Documented by: - Exam General: Reports: Alert, Oriented, Cooperative HEENT: Reports: Mucous Membr. Moist/[place] Neck: Reports: Trachea Midline Lungs: Reports: Clear to Auscultation, Normal Respiratory Effort Cardiovascular: Reports: Regular Rate, Regular Rhythm GI/Abdominal Exam: Normal Bowel Sounds, Soft, Non-Tender <Jamie Oliva - Last Filed: 02/02/21 15:43> Discharge Summary - Referral to Home Health Primary Care Physician: Gretel Prater NP - Discharge Diagnosis/Problem(s) (1) Acute respiratory disease due to COVID-19 virus SNOMED Code(s): 582683045, [id number] ICD Code: U07.1 - COVID-19; J06.9 - ACUTE UPPER RESPIRATORY INFECTION, UNSPECIFIED Status: Acute (2) Pneumonia due to COVID-19 virus SNOMED Code(s): 173341725547441472 ICD Code: U07.1 - COVID-19; J12.82 - PNEUMONIA DUE TO CORONAVIRUS DISEASE 2019 Status: Acute (3) Obesity (BMI 30.0-34.9) SNOMED Code(s): 426491295418351 ICD Code: E66.9 - OBESITY, UNSPECIFIED Status: Acute (4) Full code status SNOMED Code(s): 026636451 ICD Code: Z78.9 - OTHER SPECIFIED HEALTH STATUS Status: Acute (5) DVT prophylaxis SNOMED Code(s): 177450074, 563010540 ICD Code: Z29.9 - ENCOUNTER FOR PROPHYLACTIC MEASURES, UNSPECIFIED Status: Acute - Patient Summary/Data Consults: Consultations 01/25/21 20:59 Respiratory Care Assess and Treatment [CONS] Routine 01/26/21 13:45 OT Evaluation and Treatment [CONS] Routine PT Evaluation and Treatment [CONS] Routine - Patient Data Vitals - Most Recent: Last Vital Signs Temp 97.4 F 02/02/21 07:58 Pulse 64 02/02/21 07:58 Resp 19 02/02/21 07:58 BP 114/71 02/02/21 07:58 Pulse Ox 94 L 02/02/21 07:58 I&O - Last 24 hours: Intake & Output 02/02/21 02/02/21 02/02/21 06:59 14:59 22:59 Intake Total 1150 700 Output Total 700 500 Balance 450 200 Lab Results - Last 24 hrs: Laboratory Results - last 24 hr 02/02/21 02/02/21 Range/Units 07:01 07:01 WBC 8.26 (4.0-11.0) K/uL RBC 4.22 L (4.30-5.90) M/uL Hgb 12.3 (12.0-16.0) g/dL Hct 37.9 (36.0-46.0) % MCV 89.8 (80.0-98.0) fL MCH 29.1 (27.0-32.0) pg MCHC 32.5 (31.0-37.0) g/dL RDW Std Deviation 44.0 (28.0-62.0) fl RDW Coeff of Fransisca 13 (11.0-15.0) % Plt Count 419 H (150-400) K/uL MPV 9.50 (7.40-12.00) fL Add Manual Diff YES Neutrophils % (Manual) 57 (48.0-80.0) % Band Neutrophils % 7 % Lymphocytes % (Manual) 21 (16.0-40.0) % Monocytes % (Manual) 9 (0.0-15.0) % Metamyelocytes % 3 % Myelocytes % 3 % Nucleated RBC % 0.0 /100WBC Absolute Seg Neuts 4.7 (1.4-5.7) Band Neutrophils # 0.6 Lymphocytes # (Manual) 1.7 (0.6-2.4) Monocytes # (Manual) 0.7 (0.0-0.8) Absolute Metamyelocyte 0.2 Absolute Myelocytes 0.2 Nucleated RBCs # 0 K/uL Sodium 142 (136-145) mmol/L Potassium 4.5 (3.5-5.1) mmol/L Chloride 106 (98-107) mmol/L Carbon Dioxide 31.4 (21.0-32.0) mmol/L BUN 23 H (7.0-18.0) mg/dL Creatinine 0.9 (0.6-1.0) mg/dL Est Cr Clr Drug Dosing 73.68 mL/min Estimated GFR (MDRD) > 60.0 ml/min Glucose 104 (74-106) mg/dL Calcium 8.5 (8.5-10.1) mg/dL Total Bilirubin 0.4 (0.2-1.0) mg/dL AST 42 H (15-37) IU/L ALT 116 H (14-63) IU/L Alkaline Phosphatase 52 (46-116) U/L Total Protein 6.5 (6.4-8.2) g/dL Albumin 2.4 L (3.4-5.0) g/dL Globulin 4.1 H (2.6-4.0) g/dL Albumin/Globulin Ratio 0.6 L (0.9-1.6) Med Orders - Current: Current Medications Discontinued Medications Acetaminophen (Acetaminophen 500 Mg Tab) 1,000 mg PO ONETIME ONE Stop: 01/25/21 17:35 Last Admin: 01/25/21 17:48 Dose: 1,000 mg Documented by: Acetaminophen (Acetaminophen 325 Mg Tab) 650 mg PO Q4H PRN PRN Reason: Pain/Fever Albuterol (Albuterol 8 Gm Inhaler) 0 gm INH Q2H PRN PRN Reason: Dyspnea Last Admin: 01/26/21 20:21 Dose: 2 puff Documented by: Albuterol/Ipratropium (Albuterol/Ipratropium 3.0-0.5 Mg/3 Ml Neb Soln) 3 ml NEB Q6HRRT [facility] Last Admin: 01/26/21 12:19 Dose: 3 ml Documented by: Albuterol/Ipratropium (Albuterol/Ipratropium 3.0-0.5 Mg/3 Ml Neb Soln) 3 ml NEB Q4HRRT [facility] Last Admin: 01/29/21 13:02 Dose: Not Given Documented by: Bupropion HCl (Bupropion 150 Mg Tab.Er) 300 mg PO DAILY [facility] Last Admin: 02/02/21 09:56 Dose: 300 mg Documented by: Dexamethasone (Dexamethasone 10 Mg/Ml Sdv) 10 mg IVPUSH ONETIME ONE Stop: 01/25/21 19:16 Last Admin: 01/25/21 19:53 Dose: 10 mg Documented by: Dexamethasone (Dexamethasone 4 Mg Tab) 4 mg PO DAILY [facility] Stop: 02/04/21 09:01 Last Admin: 01/27/21 09:20 Dose: 4 mg Documented by: Dexamethasone (Dexamethasone 4 Mg Tab) 6 mg PO DAILY [facility] Stop: 02/06/21 09:01 Last Admin: 02/02/21 09:56 Dose: 6 mg Documented by: Dexamethasone (Dexamethasone 4 Mg Tab) 2 mg PO ONETIME ONE Stop: 01/27/21 13:43 Last Admin: 01/27/21 15:08 Dose: 2 mg Documented by: Enoxaparin Sodium (Enoxaparin 40 Mg/0.4 Ml Syringe) 40 mg SUBCUT Q24H [facility] Last Admin: 02/01/21 20:27 Dose: 40 mg Documented by: Escitalopram Oxalate (Escitalopram 10 Mg Tab) 20 mg PO DAILY [facility] Last Admin: 02/02/21 09:56 Dose: 20 mg Documented by: Fluticasone Propionate (Fluticasone Propionate Nasal [place] 16 Gm Bottle) 0 gm NASBOTH BID [facility] Last Admin: 01/30/21 11:06 Dose: Not Given Documented by: Guaifenesin/Dextromethorphan (Guaifenesin/Dextromethorphan 100-10 Mg/5 Ml Soln 10 Ml Cup) 10 ml PO Q4H PRN PRN Reason: Cough Last Admin: 01/31/21 20:40 Dose: 10 ml Documented by: Sodium Chloride (Normal Saline) 1,000 mls @ 999 mls/hr IV BOLUS ONE Stop: 01/25/21 18:33 Last Admin: 01/25/21 17:48 Dose: 999 mls/hr Documented by: Remdesivir 200 mg/ Sodium (Chloride) 250 mls @ 250 mls/hr IV ONETIME ONE Stop: 01/25/21 19:16 Last Admin: 01/25/21 19:58 Dose: Not Given Documented by: Dextrose/Sodium Chloride (Dextrose 5%-1/2 Ns) 1,000 mls @ 75 mls/hr IV ASDIRECTED [facility] Stop: 01/26/21 10:19 Last Admin: 01/26/21 04:34 Dose: 75 mls/hr Documented by: Remdesivir 100 mg/ Sodium (Chloride) 100 mls @ 100 mls/hr IV Q24H [facility] Stop: 01/29/21 18:44 Remdesivir 200 mg/ Sodium (Chloride) 250 mls @ 250 mls/hr IV ONETIME ONE Stop: 01/27/21 20:01 Last Admin: 01/27/21 20:50 Dose: 250 mls/hr Documented by: Remdesivir 100 mg/ Sodium (Chloride) 100 mls @ 100 mls/hr IV Q24H [facility] Stop: 01/31/21 20:59 Last Admin: 01/31/21 20:38 Dose: 100 mls/hr Documented by: Iopamidol (Iopamidol 755 Mg/Ml 500 Ml Multipack Bottle) 100 ml IVPUSH ONETIME ONE Stop: 01/25/21 19:05 Last Admin: 01/25/21 19:05 Dose: 100 ml Documented by: Ketorolac Tromethamine (Ketorolac 30 Mg/Ml Sdv) 30 mg IVPUSH ONETIME ONE Stop: 01/25/21 17:35 Last Admin: 01/25/21 17:49 Dose: 30 mg Documented by: Melatonin (Melatonin 3 Mg Tab) 6 mg PO BEDTIME PRN PRN Reason: Insomnia Last Admin: 01/26/21 21:54 Dose: 6 mg Documented by: Potassium Chloride (Potassium Chloride 20 Meq Tab.Er) 40 meq PO DAILY [facility] Last Admin: 02/01/21 09:56 Dose: Not Given Documented by: Potassium Chloride (Potassium Chloride 20 Meq Tab.Er) 40 meq PO ONETIME ONE Stop: 01/27/21 13:29 Last Admin: 01/27/21 15:08 Dose: 40 meq Documented by: Sodium Chloride (Sodium Chloride 0.9% 10 Ml Syringe) 10 ml FLUSH ASDIRECTED PRN PRN Reason: Keep Vein Open Last Admin: 01/25/21 19:13 Dose: 10 ml Documented by: Sodium Chloride (Sodium Chloride 0.9% 2.5 Ml Syringe) 2.5 ml FLUSH ASDIRECTED PRN PRN Reason: Keep Vein Open Last Admin: 01/25/21 19:13 Dose: 2.5 ml Documented by: Sodium Chloride (Sodium Chloride 0.65% Nasal [place] 45 Ml Bottle) 0 ml NASBOTH Q6H PRN PRN Reason: DRY NOSE Last Admin: 01/30/21 13:17 Dose: 1 spray Documented by: Trazodone HCl (Trazodone 50 Mg Tab) 50 mg PO BEDTIME PRN PRN Reason: Insomnia Last Admin: 02/01/21 20:28 Dose: 50 mg Documented by:
== END 2021-02-02 14:30 | disposition home or self-care (01) | DRG 137 ==
LOC: MW.ED 17:01 → MW.MS 20:23
PROVIDERS: ADMIT Hospitalist; ATTEND Hospitalist
PROC: XW033E5 Introduction of Remdesivir Anti-infective into Peripheral Vein, Percutaneous Approach, New Technology Group 5 (ICD-10-PCS; principal; 2021-01-25)
PROC: 3E0333Z Introduction of Anti-inflammatory into Peripheral Vein, Percutaneous Approach (ICD-10-PCS; 2021-01-25)
PROC: 3E0DX3Z Introduction of Anti-inflammatory into Mouth and Pharynx, External Approach (ICD-10-PCS; 2021-01-26)
DX: U07.1 COVID-19 (principal); J12.82 Pneumonia due to coronavirus disease 2019; G47.00 Insomnia, unspecified; J34.89 Other specified disorders of nose and nasal sinuses; F32.A Depression, unspecified; E66.9 Obesity, unspecified; E87.6 Hypokalemia; J96.01 Acute respiratory failure with hypoxia; Z79.899 Other long term (current) drug therapy; Z68.30 Body mass index [BMI] 30.0-30.9, adult
CPT/HCPCS: 0240U; 36415; 71275; 71275-26; 80048; 80053; 82248; 84484; 85025; 93005; 94640; 94660; 96374; 96375; 97161-GP; 97165-GO; 97530-GP; 99285-25; A9270-GY; J1100; J1650; J1885; J7030; J7042; J7050; J7620-GY; J8540; Q9967

== ENCOUNTER 2023-10-31 09:17 | Emergency (ER) | payer BC ==
[2023-10-31] MEDS ORDERED: Sodium Chloride 0.9% 2.5 ML Syringe FLUSH PRN (09:37)
[2023-10-31] MEDS ORDERED: Sodium Chloride 0.9% 10 ML Syringe FLUSH PRN (09:37)
[2023-10-31 09:47] LABS: BASOPHILS ABSOLUTE AUTO 0.03 K/uL (0.00-0.20); BASOPHILS PERCENT AUTO 0.6 % (0.0-1.0); EOSINOPHILS ABSOLUTE AUTO 0.06 K/uL (0.00-0.45); EOSINOPHILS PERCENT AUTO 1.1 % (0.0-6.0); HEMATOCRIT 39.1 % (37.0-47.0); HEMOGLOBIN 13.5 g/dL (12.0-16.0); IMMATURE GRAN ABSOLUTE AUTO 0.01 K/uL (0.00-0.05); IMMATURE GRAN PERCENT AUTO 0.2 % (0.0-0.4); LYMPHOCYTES ABSOLUTE AUTO 1.61 K/uL (1.00-4.80); LYMPHOCYTES PERCENT AUTO 29.9 % (24.0-44.0); MEAN CORPUSCULAR HEMOGLOBIN 29.9 pg (28.0-32.0); MEAN CORPUSCULAR HGB CONC 34.5 g/dL (32.0-36.0); MEAN CORPUSCULAR VOLUME 86.5 fL (83.0-99.0); MEAN PLATELET VOLUME 9.6 fL (9.4-12.3); MONOCYTES ABSOLUTE AUTO 0.35 K/uL (0.00-0.80); MONOCYTES PERCENT AUTO 6.5 % (0.0-8.0); NEUTROPHILS ABSOLUTE AUTO 3.33 K/uL (1.80-7.70); NEUTROPHILS PERCENT AUTO 61.7 % (41.0-71.0); PLATELET COUNT,PLT 223 K/uL (150-400); RED BLOOD CELL COUNT 4.52 M/uL (4.10-5.30); WHITE BLOOD CELL COUNT,WBC 5.39 K/uL (3.9-11.3)
[2023-10-31 10:06] LABS: A/G RATIO 1.1 (0.9-1.6); ALBUMIN 3.7 g/dL (3.4-5.0); BILIRUBIN TOTAL 1.1 mg/dL (0.2-1.0); CALCIUM 9.1 mg/dL (8.5-10.1); CARBON DIOXIDE,CO2 25.8 mmol/L (21.0-32.0); CREATININE 1.1 mg/dL (0.6-1.0); EST CRCL DRUG DOSING (CG) 56.84 mL/min; POTASSIUM,K 4.1 mmol/L (3.5-5.1)
[2023-10-31] MEDS: Sodium Chloride 0.9% 1,000 ML IV ONE (10:13)
[2023-10-31] MEDS: Ketorolac 30 MG/ML SDV IVPUSH ONE (10:13)
[2023-10-31] MEDS: Ondansetron 4 MG/2 ML SDV IVPUSH ONE ×2 (10:13→10:32)
[2023-10-31 12:16] LABS: APPEARANCE,URINE CLEAR; BILIRUBIN,URINE NEGATIVE (NEGATIVE); COLOR,URINE YELLOW; GLUCOSE,URINE NEGATIVE (NEGATIVE); KETONES,URINE NEGATIVE (NEGATIVE); LEUKOCYTE ESTERASE,URINE SMALL (NEGATIVE); NITRITE,URINE NEGATIVE (NEGATIVE); OCCULT BLOOD,URINE NEGATIVE (NEGATIVE); PROTEIN,URINE NEGATIVE (NEGATIVE)
[2023-10-31 12:29] LABS: BACTERIA,URINE FEW (NEGATIVE); EPITHELIAL CELLS,URINE OCCASIONAL (NONE-FEW); RBC,URINE 0-2 (0-2/HPF)
[2023-10-31 12:54] VITALS: PULSE 72
[2023-10-31 13:58] VITALS: BP 135/81
== END 2023-10-31 13:56 | disposition home or self-care (01) ==
LOC: MW.ED 09:17
DX: K80.50 Calculus of bile duct without cholangitis or cholecystitis without obstruction (principal); R74.01 Elevation of levels of liver transaminase levels; E66.9 Obesity, unspecified; Z79.899 Other long term (current) drug therapy; Z75.8 Other problems related to medical facilities and other health care; Z68.30 Body mass index [BMI] 30.0-30.9, adult
CPT/HCPCS: 36415; 76705; 80053; 81001; 83690; 84484; 85025; 96361; 96374; 96375; 99284; J1885; J2405; J7030

== ENCOUNTER 2023-11-30 06:55 | Day surgery (SDC) | payer BC, OTHER ==
[~2023-11-30 06:55] MED LIST: ceFAZolin 2 GM in Sodium Chloride 0.9% 50 ML IV ONE
[2023-11-30] MEDS: Scopalamine 1mg/3day Transdermal Patch TOP ONE (08:00)
[2023-11-30] MEDS ORDERED: fentaNYL 50 MCG/ML SDV IVPUSH PRN (08:38)
[2023-11-30] MEDS ORDERED: Ondansetron 4 MG/2 ML SDV IVPUSH PRN (08:38)
[2023-11-30] MEDS ORDERED: Morphine 2 MG/ML SYRINGE IVPUSH PRN (08:38)
[2023-11-30] MEDS ORDERED: Phenylephrine HCl In 0.9% NaCl 1 MG/10 ML Syringe IVPUSH PRN (08:38)
[2023-11-30] MEDS ORDERED: Metoclopramide 10 MG/2 ML SDV IVPUSH PRN (08:38)
[2023-11-30] MEDS ORDERED: Albuterol 0.083% 2.5 MG/3 ML Neb Soln NEB PRN (08:38)
[2023-11-30] MEDS ORDERED: HYDROmorphone 1 MG/ML Syringe IVPUSH PRN (08:38)
[2023-11-30] MEDS ORDERED: Naloxone 0.4 MG/ML SDV IVPUSH PRN (08:38)
[2023-11-30] MEDS: Lactated Ringers 1,000 ML IV SCH (09:30)
[2023-11-30] MEDS ORDERED: ceFAZolin 1 GM Vial ONE (09:51)
[2023-11-30] MEDS ORDERED: Bupivacaine 0.5% 30 ML SDV ONE (09:51)
[2023-11-30] MEDS ORDERED: Propofol 200 MG/20 ML SDV ONE (09:52)
[2023-11-30] MEDS ORDERED: fentaNYL 100 MCG/2 ML SDV ONE (09:53)
[2023-11-30] MEDS ORDERED: Rocuronium Bromide 50 MG/5 ML Syringe ONE (09:54)
[2023-11-30] MEDS ORDERED: Bupivacaine 0.25% 30 ML SDV ONE (09:57)
[2023-11-30] MEDS ORDERED: Ropivacaine 0.5% 5 MG/ML 30 ML SDV ONE (09:57)
[2023-11-30] MEDS ORDERED: Indocyanine Green 25 MG SDV ONE (10:26)
[2023-11-30] MEDS ORDERED: ceFAZolin 2 GM Vial ONE (10:27)
[2023-11-30] MEDS ORDERED: Ondansetron 4 MG/2 ML SDV ONE (10:33)
[2023-11-30] MEDS ORDERED: Dexamethasone 4 MG/ML 5 ML MDV ONE (10:33)
[2023-11-30] MEDS ORDERED: ePHEDrine 50 MG/ML SDV ONE (10:56)
[2023-11-30] MEDS ORDERED: Glycopyrrolate 0.2 MG/ML SDV ONE (10:56)
[2023-11-30] MEDS ORDERED: Sugammadex Sodium 200 MG/2 ML VIAL IV ONE (11:10)
[2023-11-30] MEDS ORDERED: Ketorolac 30 MG/ML SDV ONE (11:10)
[2023-11-30] MEDS ORDERED: Morphine 4 MG/ML Syringe IVPUSH PRN (11:51)
[2023-11-30] MEDS ORDERED: Acetaminophen/HYDROcodone 325-5 MG Tab PO PRN (11:51)
[2023-11-30] MEDS ORDERED: Lactated Ringers 1,000 ML IV SCH (12:00)
[2023-11-30 13:04] VITALS: BP 115/74; PULSE 61
== END 2023-11-30 13:30 | disposition home or self-care (01) ==
LOC: MW.SDS 06:55
PROVIDERS: ATTEND Surgery
DX: K80.10 Calculus of gallbladder with chronic cholecystitis without obstruction (principal); I10 Essential (primary) hypertension; F41.9 Anxiety disorder, unspecified; F32.A Depression, unspecified; G47.33 Obstructive sleep apnea (adult) (pediatric); E66.9 Obesity, unspecified; Z79.899 Other long term (current) drug therapy
CPT/HCPCS: 47563; A9270; J0131; J0665; J0690; J1100; J1885; J2405; J2704; J2795; J3010; J3490; J7120; 00790; 64488